=== PATIENT | female | born 1950 | race Caucasian/White ===

== ENCOUNTER 2021-02-17 14:47 | Inpatient (IN) | payer MEDICARE, MEDICAID, SELFPAY ==
[2021-02-17] VITALS (23 sets, daily range): BP systolic 50–156; BP diastolic 30–135; PULSE 85–140; RESP 15–31; TEMP 36.3; O2SAT 95–100; BMI 27.6; BMI 26.6
--- NOTE | 2021-02-17 03:22 | XRR_ITS ---
PROCEDURE INFORMATION: Exam: XR Chest Exam date and time: 02/17/2021 3:22 AM Age: 70 years old Clinical indication: Device placement; Other: Not specified; Additional info: Line placement TECHNIQUE: Imaging protocol: XR of the chest. Views: 1 view. Total images: 1 COMPARISON: CT chest abd pel w con* 02/17/2021 6:40 PM FINDINGS: Tubes, catheters and devices: A right internal jugular central venous catheter is present, with its tip overlying the region of the caval atrial junction. Lungs: Mild hazy opacity seen in the left mid lung and lung base. Pleural spaces: No pneumothorax. Heart/Mediastinum: Unremarkable. No cardiomegaly. Bones/joints: Chronic medial right shoulder dislocation. Osseous structures are unchanged from the prior exam. Other findings: X-ray is slightly rotated. XR/XR chest 1V portable [id number] IMPRESSION: 1. A right internal jugular central venous catheter is present, with its tip overlying the region of the caval atrial junction. 2. No pneumothorax. 3. Mild hazy opacity seen in the left mid lung and lung base. Radiation Dose CTDIVOL = (mGy): DLP = (mGy-cm)
--- NOTE | 2021-02-17 14:55 | CT_ITS ---
WS: [id number] CT head wo con* [id number] REASON FOR EXAM: Left-sided facial weakness right arm and leg weakness IV CONTRAST ADMINISTERED: None. TOTAL EXAM DLP: 846.[address] scans at [facility] use at least one of these dose optimization techniques: automat ed exposure control; mA and/or kV adjustment per patient size (includes targeted exams where dose is matched to clinical indication); or iterative reconstruction. FINDINGS: No midline shift or other significant mass effect. No findings of intracranial hemorrhage and no extra-axial fluid collection noted. No acute focal brain parenchymal abnormality is identified. There is symmetric global atrophy with enlargement of the ventricles and CSF spaces. No abnormality at the base of the skull is identified. CT/CT head wo con* [id number] IMPRESSION: No acute intracranial abnormality.
--- NOTE | 2021-02-17 14:56 | XR_ITS ---
WS: [id number] XR chest 1V portable [id number] REASON FOR EXAM: dyspnea/cough FINDINGS: The heart and mediastinum are within normal limits. Calcified granulomatous changes in both hemithoraces. No active pulmonary parenchymal or pleural disease noted. Chronic anterior dislocation of the right shoulder. Mild to moderate degenerative changes in the mid and lower thoracic spine. XR/XR chest 1V portable [id number] IMPRESSION: No acute chest abnormality.
--- NOTE | 2021-02-17 14:56 | ECG_ITS ---
[facility] Test Date: 2021-02-17 Pat Name: Dilma Ojeda Department: Room: Gender: Female Inspector Subassembly: : 1950 Requested By: Damian Mao Order Number: [id number] Pooja MD: Harpreet Wilson M.D. Measurements Intervals [place] Rate: 115 P: 59 WA: 162 QRS: -15 QRSD: 79 T: 81 QT: 316 QTc: 438 Interpretive Statements SINUS TACHYCARDIA WITH FREQUENT SUPRAVENTRICULAR PREMATURE COMPLEXES LOW QRS VOLTAGE IN PRECORDIAL LEADS [QRS DEFLECTION < 1.0 mV IN CHEST LEADS] POSSIBLE RIGHT VENTRICULAR CONDUCTION DELAY [RSR (QR) IN V1/V2] No previous ECG available for comparison Electronically Signed On 02-18-2021 21:32:02 CDT by Harpreet Wilson M.D. [id number]
--- NOTE | 2021-02-17 14:58 | ED_ITS ---
Documented by User: Damian Franklin DO 02/22/21 13:53 HPI - Altered Mental Status General: Chief Complaint: Weakness Stated Complaint: LOW BP Time Seen by Provider: 02/17/21 14:55 History of Present Illness: HPI narrative: 68-year-old female brought in by EMS. On arrival she is hypotensive and lethargic although she will follow simple commands she has a left-sided facial droop and seems to have weakness on the right arm and leg that is more significant than on the left. No other history is known at this point EMS relates they did give some fluids but she seems fluid overloaded with edema so they did not give her significant bolus. We are contacting jail to get more definitive report. MD complaint: altered mental status, confusion and decreased responsiveness Onset (ago): unknown Treatments prior to arrival: IV fluid and oxygen Review of Systems Const: Denies: fever(s), chills, body aches, change in appetite, fatigue or malaise Card: Denies: chest pain, edema, dyspnea on exertion or orthopnea Resp: Denies: dyspnea, productive cough or non-productive cough GI: Denies: abdominal pain, nausea or vomiting : Denies: flank pain, difficulty voiding, dysuria, urinary frequency or urinary urgency Skin/Breast: Denies: rash or pruritus PFSH ED PFSH: Medical History Acute gastroenteritis Asthma HTN (hypertension) Hyperlipidemia Type 2 diabetes mellitus Surgical History S/P hip replacement Social History Smoking and tobacco status: former smoker Alcohol intake: never Substance/Drug Use: never Housing: Senior Living Physical Exam Const: ORIENTATION/CONSCIOUSNESS: Yes awake HENMT: COMMON NORMALS: normocephalic, atraumatic and hearing grossly normal bilaterally HEAD & SCALP: normocephalic and atraumatic Resp: COMMON NORMALS: normal respiratory effort, No retractions and No use of accessory muscles AUSCULTATION: diminished lung sounds Cardio: COMMON NORMALS: regular rate and regular rhythm RATE: regular rate RHYTHM: regular rhythm HEART SOUNDS: Murmur heart sound present systolic Location: apex Radiation: to the left axilla Intensity: IV/ Characteristics: blowing Timing: early GI: COMMON NORMALS: Soft to palpation and No hepatosplenomegaly present AUSCULTATION: Yes normoactive bowel sounds PALPATION: Yes Soft to palpation, No Tenderness to palpation present (GI), No Guarding due to palpation present (GI) and Yes No hepatosplenomegaly present Extremity: COMMON NORMALS: normal to inspection, capillary refill normal, no clubbing, cyanosis or edema, no calf tenderness and no pedal edema Skin: COMMON NORMALS: no rashes or lesions noted GENERAL SKIN EXAM: no rashes or lesions noted Course Vital Signs: Vital signs: Vital Signs Temperature 99.1 F 02/20/21 20:02 Pulse Rate 99 02/22/21 09:42 Respiratory Rate 22 H 02/22/21 09:39 Blood Pressure 124/62 02/21/21 00:45 Pulse Oximetry 96 02/22/21 09:39 MDM - Altered Mental Status MDM Narrative: Medical decision making narrative: Labs imaging and EKGs reviewed. I suspect there is a left subcapital hip fracture withimpaction. CT ordered to further evaluate. Discussed with hospitalist and with Ortho. Patient appears to be in septic shock cannot find source of infection we will start with broad-spectrum antibiotics initially. Lab Data: Labs: Lab Results 02/17/21 02/17/21 02/17/21 15:17 15:17 15:17 WBC 15.1 10^3/uL H 10 ^3/uL (4.0-10.0) RBC 3.30 10^6/uL L 10 ^6/uL (4.1-5.3) Hgb 10.3 g/dL L g/dL (11.5-15.3) Hct 32.0 % L % (37.0-47.0) MCV 97.0 fl fl (81-99) MCH 31.2 pg pg (28.0-34.0) MCHC 32.2 g/dL g/dL (30.0-36.0) RDW 16.9 % H % (12.1-15.1) Plt Count 190 10^3/cmm 10^3 /cmm (130-400) MPV 9.7 fL fL (7.4-10.4) Neut % (Auto) 81.3 % % Lymph % (Auto) 5.4 % % [place] % (Auto) 10.6 % % Eos % (Auto) 0.3 % % Baso % (Auto) 0.7 % % Neut # (Auto) 12.27 10^3/uL H 1 0^3/uL (1.8-7.7) Lymph # (Auto) 0.8 10^3/uL 10^3/ uL (0.8-4.8) [place] # (Auto) 1.6 10^3/uL H 10^ 3/uL (0.2-0.9) Eos # (Auto) 0.1 10^3/uL 10^3/ uL (0.0-0.8) Baso # (Auto) 0.1 10^3/uL 10^3/ uL (0.0-0.1) Nucleated RBC % (a uto) 0 % % Nucleated RBCs # 0.0 /100WBC /100W BC D-Dimer Sodium 130 mmol/L L mmol /L (136-145) Potassium 3.8 mmol/L mmol/L (3.5-5.1) Chloride 95 mmol/L L mmol/ L (98-107) Carbon Dioxide 21 mmol/L L mmol/ L (22-29) Anion Gap 17.8 (5-19) BUN 43 mg/dL H mg/dL (8-23) Creatinine 0.7 mg/dL mg/dL (0.5-0.9) GFR Calculation Not Reportable Glucose 213 mg/dL H mg/dL (65-115) Calculated Osmolal ity 287 mOsm/kg mOsm/ kg (285-295) Lactic Acid 3.0 mmol/L H mmol /L (0.5-2.2) Lactic Acid (Sepsi s) Calcium 8.2 mg/dL L mg/dL (8.5-10.5) Magnesium 1.9 mg/dL mg/dL (1.7-2.3) Iron TIBC % Saturation Unsat Iron Binding Total Bilirubin 0.6 mg/dL mg/dL (0.15-1.2) AST 37 U/L H U/L (0-32) ALT 25 U/L U/L (0-33) Alkaline Phosphata se 307 IU/L H IU/L (35-105) Creatine Kinase 73 U/L U/L (26-192) Troponin T Baselin e Troponin T [address] [place] Troponin T NT-Pro-B Natriuret Pep 1447 pg/mL H pg/m L (0-125) Total Protein 4.2 g/dL L g/dL (6.6-8.7) Albumin 2.0 g/dL L g/dL (3.5-5.2) Globulin 2.2 g/dL g/dL (1.3-4.6) Lipase 7 U/L L U/L (13-60) Procalcitonin TSH Urine Color Urine Appearance Urine pH Ur Specific Gravit y Urine Protein Urine Glucose (UA) Urine Ketones Urine Blood Urine Nitrate Urine Bilirubin Urine Urobilinogen Ur Leukocyte [place]aim[place] ase Urine RBC Urine WBC Ur Squamous Epith Cells Amorphous Sediment Urine Bacteria Ur Random Sodium Ur Random Potassiu m Ur Random Chloride 02/17/21 02/17/21 02/17/21 15:17 15:17 15:17 WBC RBC Hgb Hct MCV MCH MCHC RDW Plt Count MPV Neut % (Auto) Lymph % (Auto) [place] % (Auto) Eos % (Auto) Baso % (Auto) Neut # (Auto) Lymph # (Auto) [place] # (Auto) Eos # (Auto) Baso # (Auto) Nucleated RBC % (a uto) Nucleated RBCs # D-Dimer Sodium Potassium Chloride Carbon Dioxide Anion Gap BUN Creatinine GFR Calculation Glucose Calculated Osmolal ity Lactic Acid Lactic Acid (Sepsi s) Calcium Magnesium Iron 56 ug/dL ug/dL (37-145) TIBC 159 mcg/dl mcg/dl % Saturation 35.2 % % (20-50) Unsat Iron Binding 103 ug/dL L ug/dL (112-347) Total Bilirubin AST ALT Alkaline Phosphata se Creatine Kinase Troponin T Baselin e 38 ng/L H ng/L (0-10) Troponin T [address] [place] Troponin T NT-Pro-B Natriuret Pep Total Protein Albumin Globulin Lipase Procalcitonin 0.32 ng/mL ng/mL (0-0.5) TSH 4.42 uIU/mL H uIU /mL (0.27-4.20) Urine Color Yellow (Yellow) Urine Appearance Clear (CLEAR) Urine pH 5 (5-7) Ur Specific Gravit y 1.020 (1.005-1.030) Urine Protein Neg (Negative) Urine Glucose (UA) Norm (Normal) Urine Ketones Negative (Negative) Urine Blood 2+ H (Negative) Urine Nitrate Negative (Negative) Urine Bilirubin 1+ H (Negative) Urine Urobilinogen Norm mg/dL mg/dL (Negative) Ur Leukocyte Naima ase Negative (Negative) Urine RBC Rare /hpf /hpf (0-2) Urine WBC Rare /hpf /hpf (0-5) Ur Squamous Epith Cells None /hpf /hpf (0-5) Amorphous Sediment Not Reportable Urine Bacteria Trace /hpf /hpf (NONE) Ur Random Sodium Ur Random Potassiu m Ur Random Chloride 02/17/21 02/17/21 02/17/21 15:17 15:17 17:25 WBC RBC Hgb Hct MCV MCH MCHC RDW Plt Count MPV Neut % (Auto) Lymph % (Auto) [place] % (Auto) Eos % (Auto) Baso % (Auto) Neut # (Auto) Lymph # (Auto) [place] # (Auto) Eos # (Auto) Baso # (Auto) Nucleated RBC % (a uto) Nucleated RBCs # D-Dimer 1.19 ug/mIFEU H u g/mIFEU (0-0.59) Sodium Potassium Chloride Carbon Dioxide Anion Gap BUN Creatinine GFR Calculation Glucose Calculated Osmolal ity Lactic Acid Lactic Acid (Sepsi s) Calcium Magnesium Iron TIBC % Saturation Unsat Iron Binding Total Bilirubin AST ALT Alkaline Phosphata se Creatine Kinase Troponin T Baselin e Troponin T [address] [place] 37.26 ng/L H ng/L (0-10) Delta Troponin T -0.74 ABS# L ABS# (0-10) NT-Pro-B Natriuret Pep Total Protein Albumin Globulin Lipase Procalcitonin TSH Urine Color Urine Appearance Urine pH Ur Specific Gravit y Urine Protein Urine Glucose (UA) Urine Ketones Urine Blood Urine Nitrate Urine Bilirubin Urine Urobilinogen Ur Leukocyte [place] Urine RBC Urine WBC Ur Squamous Epith Cells Amorphous Sediment Urine Bacteria Ur Random Sodium 10 mmol/L mmol/L Ur Random [place] m 61 mmol/L mmol/L Ur Random Chloride 15 mmol/L mmol/L 02/17/21 17:25 WBC RBC Hgb Hct MCV MCH MCHC RDW Plt Count MPV Neut % (Auto) Lymph % (Auto) [place] % (Auto) Eos % (Auto) Baso % (Auto) Neut # (Auto) Lymph # (Auto) [place] # (Auto) Eos # (Auto) Baso # (Auto) Nucleated RBC % (a uto) Nucleated RBCs # D-Dimer Sodium Potassium Chloride Carbon Dioxide Anion Gap BUN Creatinine GFR Calculation Glucose Calculated Osmolal ity Lactic Acid Lactic Acid (Sepsi s) 6.0 mmol/L H* mmo l/L (0.5-2.2) Calcium Magnesium Iron TIBC % Saturation Unsat Iron Binding Total Bilirubin AST ALT Alkaline Phosphata se Creatine Kinase Troponin T Baselin e Troponin T [address] [place] Troponin T NT-Pro-B Natriuret Pep Total Protein Albumin Globulin Lipase Procalcitonin TSH Urine Color Urine Appearance Urine pH Ur Specific Gravit y Urine Protein Urine Glucose (UA) Urine Ketones Urine Blood Urine Nitrate Urine Bilirubin Urine Urobilinogen Ur Leukocyte [place] ase Urine RBC Urine WBC Ur Squamous Epith Cells Amorphous Sediment Urine Bacteria Ur Random Sodium Ur Random Potass[place] m Ur Random Chloride Discharge Plan Discharge Patient Disposition: Admitted As Inpatient Admit Provider: Spike Jamison Clinical Impression: Septic shock, HTN (hypertension), Afib, Subcapital fracture of left hip Condition: Stable Coding Level of Care Code ED Coding Clerks Supervisor for Chg Fwd Exam Detailed Documented by User: Ronny Ritter DO 02/18/21 04:32 HPI - Altered Mental Status General: Chief Complaint: Weakness Stated Complaint: LOW BP Time Seen by Provider: 02/17/21 14:55 PFSH ED PFSH: Medical History Acute gastroenteritis Asthma HTN (hypertension) Hyperlipidemia Type 2 diabetes mellitus Surgical History S/P hip replacement Social History Smoking and tobacco status: former smoker Alcohol intake: never Substance/Drug Use: never Housing: Senior Living Procedures Central Line Placement Right IJ: Time Out Performed: No Patient Placed on Monitor/Pulse Ox: Yes MD Prep: mask, gown and gloves Central Line Prep: Chlorhexidine scrub Local Anesthetic: lidocaine 1% Amount of anesthesia used (mL): 3 Ultrasound Used for Placement: Yes Central Line Lumen Inserted: triple Post Procedure: sutured in place, good blood return, all ports aspirated, flushed, capped and sterile dressing applied Post Procedure X-Ray: tip of catheter in good position Patient Tolerated Procedure: well and no complications Course Vital Signs: Vital signs: Vital Signs Temperature 99.1 F 02/20/21 20:02 Pulse Rate 99 02/22/21 09:42 Respiratory Rate 22 H 02/22/21 09:39 Blood Pressure 124/62 02/21/21 00:45 Pulse Oximetry 96 02/22/21 09:39 MDM - Altered Mental Status Lab Data: Labs: Lab Results 02/17/21 02/17/21 02/17/21 15:17 15:17 15:17 WBC 15.1 10^3/uL H 10 ^3/uL (4.0-10.0) RBC 3.30 10^6/uL L 10 ^6/uL (4.1-5.3) Hgb 10.3 g/dL L g/dL (11.5-15.3) Hct 32.0 % L % (37.0-47.0) MCV 97.0 fl fl (81-99) MCH 31.2 pg pg (28.0-34.0) MCHC 32.2 g/dL g/dL (30.0-36.0) RDW 16.9 % H % (12.1-15.1) Plt Count 190 10^3/cmm 10^3 /cmm (130-400) MPV 9.7 fL fL (7.4-10.4) Neut % (Auto) 81.3 % % Lymph % (Auto) 5.4 % % [place] % (Auto) 10.6 % % Eos % (Auto) 0.3 % % Baso % (Auto) 0.7 % % Neut # (Auto) 12.27 10^3/uL H 1 0^3/uL (1.8-7.7) Lymph # (Auto) 0.8 10^3/uL 10^3/ uL (0.8-4.8) [place] # (Auto) 1.6 10^3/uL H 10^ 3/uL (0.2-0.9) Eos # (Auto) 0.1 10^3/uL 10^3/ uL (0.0-0.8) Baso # (Auto) 0.1 10^3/uL 10^3/ uL (0.0-0.1) Nucleated RBC % (a uto) 0 % % Nucleated RBCs # 0.0 /100WBC /100W BC D-Dimer Sodium 130 mmol/L L mmol /L (136-145) Potassium 3.8 mmol/L mmol/L (3.5-5.1) Chloride 95 mmol/L L mmol/ L (98-107) Carbon Dioxide 21 mmol/L L mmol/ L (22-29) Anion Gap 17.8 (5-19) BUN 43 mg/dL H mg/dL (8-23) Creatinine 0.7 mg/dL mg/dL (0.5-0.9) GFR Calculation Not Reportable Glucose 213 mg/dL H mg/dL (65-115) Calculated Osmolal ity 287 mOsm/kg mOsm/ kg (285-295) Lactic Acid 3.0 mmol/L H mmol /L (0.5-2.2) Lactic Acid (Sepsi s) Calcium 8.2 mg/dL L mg/dL (8.5-10.5) Magnesium 1.9 mg/dL mg/dL (1.7-2.3) Iron TIBC % Saturation Unsat Iron Binding Total Bilirubin 0.6 mg/dL mg/dL (0.15-1.2) AST 37 U/L H U/L (0-32) ALT 25 U/L U/L (0-33) Alkaline Phosphata se 307 IU/L H IU/L (35-105) Creatine Kinase 73 U/L U/L (26-192) Troponin T Baselin e Troponin T [address] [place] Troponin T NT-Pro-B Natriuret Pep 1447 pg/mL H pg/m L (0-125) Total Protein 4.2 g/dL L g/dL (6.6-8.7) Albumin 2.0 g/dL L g/dL (3.5-5.2) Globulin 2.2 g/dL g/dL (1.3-4.6) Lipase 7 U/L L U/L (13-60) Procalcitonin TSH Urine Color Urine Appearance Urine pH Ur Specific Gravit y Urine Protein Urine Glucose (UA) Urine Ketones Urine Blood Urine Nitrate Urine Bilirubin Urine Urobilinogen Ur Leukocyte [place] a[place] Urine RBC Urine WBC Ur Squamous Epith Cells Amorphous Sediment Urine Bacteria Ur Random Sodium Ur Random [place] m Ur Random Chloride 02/17/21 02/17/21 02/17/21 15:17 15:17 15:17 WBC RBC Hgb Hct MCV MCH MCHC RDW Plt Count MPV Neut % (Auto) Lymph % (Auto) [place] % (Auto) Eos % (Auto) Baso % (Auto) Neut # (Auto) Lymph # (Auto) [place] # (Auto) Eos # (Auto) Baso # (Auto) Nucleated RBC % (a uto) Nucleated RBCs # D-Dimer Sodium Potassium Chloride Carbon Dioxide Anion Gap BUN Creatinine GFR Calculation Glucose Calculated Osmolal ity Lactic Acid Lactic Acid (Sepsi s) Calcium Magnesium Iron 56 ug/dL ug/dL (37-145) TIBC 159 mcg/dl mcg/dl % Saturation 35.2 % % (20-50) Unsat Iron Binding 103 ug/dL L ug/dL (112-347) Total Bilirubin AST ALT Alkaline Phosphata se Creatine Kinase Troponin T Baselin e 38 ng/L H ng/L (0-10) Troponin T [address] [place] Troponin T NT-Pro-B Natriuret Pep Total Protein Albumin Globulin Lipase Procalcitonin 0.32 ng/mL ng/mL (0-0.5) TSH 4.42 uIU/mL H uIU /mL (0.27-4.20) Urine Color Yellow (Yellow) Urine Appearance Clear (CLEAR) Urine pH 5 (5-7) Ur Specific Gravit y 1.020 (1.005-1.030) Urine Protein Neg (Negative) Urine Glucose (UA) Norm (Normal) Urine Ketones Negative (Negative) Urine Blood 2+ H (Negative) Urine Nitrate Negative (Negative) Urine Bilirubin 1+ H (Negative) Urine Urobilinogen Norm mg/dL mg/dL (Negative) Ur Leukocyte Naima ase Negative (Negative) Urine RBC Rare /hpf /hpf (0-2) Urine WBC Rare /hpf /hpf (0-5) Ur Squamous Epith Cells None /hpf /hpf (0-5) Amorphous Sediment Not Reportable Urine Bacteria Trace /hpf /hpf (NONE) Ur Random Sodium Ur Random Potass[place] m Ur Random Chloride 02/17/21 02/17/21 02/17/21 15:17 15:17 17:25 WBC RBC Hgb Hct MCV MCH MCHC RDW Plt Count MPV Neut % (Auto) Lymph % (Auto) [place] % (Auto) Eos % (Auto) Baso % (Auto) Neut # (Auto) Lymph # (Auto) [place] # (Auto) Eos # (Auto) Baso # (Auto) Nucleated RBC % (a uto) Nucleated RBCs # D-Dimer 1.19 ug/mIFEU H u g/mIFEU (0-0.59) Sodium Potassium Chloride Carbon Dioxide Anion Gap BUN Creatinine GFR Calculation Glucose Calculated Osmolal ity Lactic Acid Lactic Acid (Sepsi s) Calcium Magnesium Iron TIBC % Saturation Unsat Iron Binding Total Bilirubin AST ALT Alkaline Phosphata se Creatine Kinase Troponin T Baselin e Troponin T [address] [place] 37.26 ng/L H ng/L (0-10) Delta Troponin T -0.74 ABS# L ABS# (0-10) NT-Pro-B Natriuret Pep Total Protein Albumin Globulin Lipase Procalcitonin TSH Urine Color Urine Appearance Urine pH Ur Specific Gravit y Urine Protein Urine Glucose (UA) Urine Ketones Urine Blood Urine Nitrate Urine Bilirubin Urine Urobilinogen Ur Leukocyte [place]aim[place] ase Urine RBC Urine WBC Ur Squamous Epith Cells Amorphous Sediment Urine Bacteria Ur Random Sodium 10 mmol/L mmol/L Ur Random [place] m 61 mmol/L mmol/L Ur Random Chloride 15 mmol/L mmol/L 02/17/21 17:25 WBC RBC Hgb Hct MCV MCH MCHC RDW Plt Count MPV Neut % (Auto) Lymph % (Auto) [place] % (Auto) Eos % (Auto) Baso % (Auto) Neut # (Auto) Lymph # (Auto) [place] # (Auto) Eos # (Auto) Baso # (Auto) Nucleated RBC % (a uto) Nucleated RBCs # D-Dimer Sodium Potassium Chloride Carbon Dioxide Anion Gap BUN Creatinine GFR Calculation Glucose Calculated Osmolal ity Lactic Acid Lactic Acid (Sepsi s) 6.0 mmol/L H* mmo l/L (0.5-2.2) Calcium Magnesium Iron TIBC % Saturation Unsat Iron Binding Total Bilirubin AST ALT Alkaline Phosphata se Creatine Kinase Troponin T Baselin e Troponin T [address] [place] Troponin T NT-Pro-B Natriuret Pep Total Protein Albumin Globulin Lipase Procalcitonin TSH Urine Color Urine Appearance Urine pH Ur Specific Gravit y Urine Protein Urine Glucose (UA) Urine Ketones Urine Blood Urine Nitrate Urine Bilirubin Urine Urobilinogen Ur Leukocyte [place] ase Urine RBC Urine WBC Ur Squamous Epith Cells Amorphous Sediment Urine Bacteria Ur Random Sodium Ur Random Potass[place] m Ur Random Chloride Discharge Plan Discharge Patient Disposition: Admitted As Inpatient Admit Provider: Spike Jamison Clinical Impression: Septic shock, HTN (hypertension), Afib, Subcapital fracture of left hip Condition: Stable Coding Level of Care Code ED Coding Clerks Supervisor for Chg Fwd Exam Detailed
[2021-02-17 15:30] LABS: Basophils # 0.1 10^3/uL (0.0-0.1); Basophils % 0.7 %; Eosinophils # 0.1 10^3/uL (0.0-0.8); Eosinophils % 0.3 %; Hemoglobin 10.3 g/dL (11.5-15.3); Lymphocytes # 0.8 10^3/uL (0.8-4.8); Lymphocytes % 5.4 %; Mean Corpuscular HGB Conc 32.2 g/dL (30.0-36.0); Mean Corpuscular Hemoglobin 31.2 pg (28.0-34.0); Mean Platelet Volume 9.7 fL (7.4-10.4); Monocytes # 1.6 10^3/uL (0.2-0.9); Monocytes % 10.6 %; Neutrophils # 12.27 10^3/uL (1.8-7.7); Neutrophils % 81.3 %; Nucleated Red Blood Cells % 0 %; Platelet Count 190 10^3/cmm (130-400); Red Cell Distribution Width 16.9 % (12.1-15.1); White Blood Count 15.1 10^3/uL (4.0-10.0)
[2021-02-17 15:53] LABS: Troponin(5th) Baseline 38 ng/L (0-10)
[2021-02-17 16:02] LABS: Alanine Aminotransferase 25 U/L (0-33); Alkaline Phosphatase 307 IU/L (35-105); Anion Gap 17.8 (5-19); Aspartate Amino Transferase 37 U/L (0-32); Blood Urea Nitrogen 43 mg/dL (8-23); Calcium 8.2 mg/dL (8.5-10.5); Carbon Dioxide 21 mmol/L (22-29); Chloride 95 mmol/L (98-107); Creatine Phosphokinase 73 U/L (26-192); Globulin 2.2 g/dL (1.3-4.6); Glucose 213 mg/dL (65-115); Lipase 7 U/L (13-60); Magnesium 1.9 mg/dL (1.7-2.3); NT Pro B Type Natriuretic Pept 1447 pg/mL (0-125); Osmolality Calculated 287 mOsm/kg (285-295); Potassium 3.8 mmol/L (3.5-5.1); Sodium 130 mmol/L (136-145); Total Bilirubin 0.6 mg/dL (0.15-1.2); Total Protein 4.2 g/dL (6.6-8.7)
[2021-02-17 16:28] LABS: Add Urine Microscopic? YES; Bacteria Urine TRACE /hpf; Bilirubin Urine 1+ (Negative); Blood Urine 2+ (Negative); Glucose Urine UA Norm (Normal); Ketones Urine Negative (Negative); Leukocyte Esterase Urine Negative (Negative); Nitrate Urine Negative (Negative); Protein Urine Neg (Negative); RBC Urine RARE /hpf (0-2); Urine Appearance Clear (CLEAR); Urine Color Yellow (Yellow); Urobilinogen Urine Norm (Negative); WBC Urine RARE /hpf (0-5); pH Urine 5 (5-7)
--- NOTE | 2021-02-17 16:56 | ECG_ITS ---
[facility] Test Date: 2021-02-17 Pat Name: Dilma Ojeda Department: Room: Gender: Female Bi Application Developer: : 1950 Requested By: Damian Mao Order Number: [id number] Pooja MD: Melinda Diez M.D. Measurements Intervals [place] Rate: 136 P: ND: QRS: -18 QRSD: 77 T: 77 QT: 274 QTc: 414 Interpretive Statements ATRIAL FIBRILLATION WITH RAPID VENTRICULAR RESPONSE LOW QRS VOLTAGE [QRS DEFLECTION < 0.5/1.0 mV IN LIMB/CHEST LEADS] POSSIBLE RIGHT VENTRICULAR CONDUCTION DELAY [RSR (QR) IN V1/V2] INFERIOR MYOCARDIAL INFARCTION , PROBABLY OLD [40+ ms Q WAVE AND/OR ST/T ABNORMALITY IN II/aVF] No previous ECG available for comparison Electronically Signed On 02-17-2021 19:35:20 CDT by Melinda Diez M.D. [id number]
[2021-02-17 17:12] LABS: Reflex Lactate Order REFLEX LACTIC ORDERD
--- NOTE | 2021-02-17 17:18 | XRR_ITS ---
PROCEDURE INFORMATION: Exam: XR Left Hip Exam date and time: 02/17/2021 5:18 PM Age: 70 years old Clinical indication: Hip pain and pelvic pain; Left hip; Additional info: Pain, include pelvis TECHNIQUE: Imaging protocol: XR Left hip. Views: 2 or 3 views hip with pelvis when performed. Total images: 3 COMPARISON: No relevant prior studies available. FINDINGS: Bones/joints: No visible fracture, subluxation, or dislocation. Advanced primary osteoarthritis of the hips, left more involved than right. Degenerative disease and degenerative disc disease of visualized lumbosacral spine. Soft tissues: Unremarkable. XR/XR hip LT 2-3V wo/w pel* [id number] IMPRESSION: Advanced primary osteoarthritis of the hips, left more involved than right. Radiation Dose CTDIVOL = (mGy): DLP = (mGy-cm)
[2021-02-17] MEDS: sodium chloride 0.9% 500 ML 999 ML IV (17:47)
--- NOTE | 2021-02-17 17:51 | USCV_ITS ---
Dilma Ojeda Age: 70 Gender: F : 1950 Exam Date: 02/17/2021 18:53 Ordering Phys: Spike Jamiosn MD Technologist: Della Díaz [place] [facility] [place]: shock afib BP: 108 / 63 HR: 122 Rhythm: Sinus Technical Quality: Very technically difficult study MEASUREMENTS (Male / Female) Normal Values 2D ECHO LV Diastolic Diameter PLAX 3.7 cm 4.2 - 5.9 / 3.9 - 5.3 cm LV Systolic Diameter PLAX 2.4 cm IVS Diastolic Thickness 1.2 cm 0.6 - 1.0 / 0.6 - 0.9 cm IVS Systolic Thickness 1.5 cm LVPW Diastolic Thickness 1.3 cm 0.6 - 1.0 / 0.6 - 0.9 cm LVPW Systolic Thickness 1.3 cm LVOT Diameter 2.0 cm LV Ejection Fraction 2D Teich 64.7 % LV Ejection Fraction MOD 2C 63.0 % LV Ejection Fraction 2C AL 64.5 % LA Diameter 2.4 cm Aorta at Sinotubular Diameter 1.8 cm DOPPLER AV Peak Velocity 605.0 cm/s LVOT Peak Velocity 207.0 cm/s AV Area Cont Eq vti 1.3 cm squared AV Area Cont Eq pk 1.1 cm squared MV Area PHT 4.6 cm squared Mitral E to A Ratio 0.7 MV E' Velocity 108.0 cm/s TR Peak Velocity 208.0 cm/s TR Peak Gradient 17.3 mmHg Right Atrial Pressure 8.0 mmHg Pulmonary Artery Systolic Pressu 25.3 mmHg FINDINGS Left Ventricle Technically very difficult study because of tachycardia and poor ultrasonic windows. Grossly LV systolic function is normal. Right Ventricle Grossly normal Right Atrium Not well-visualized Left Atrium Grossly normal Mitral Valve Moderate to severe mitral annular calcification is noted. Mild to moderate mitral regurgitation is seen. Aortic Valve Not well-visualized. Gradient across aortic valve is not clear because of poor Doppler signals. Will need repeat echo once heart rate is controlled. Tricuspid Valve Not well-visualized. Pulmonic Valve Not well-visualized Pericardium Normal pericardium without effusion. Aorta Normal ascending aorta dimension. CONCLUSIONS This is technically very limited quality study because of poor ultrasonic windows and elevated heart rates. LV systolic function is grossly normal. Moderate to severe mitral annular calcification is seen. Mild to moderate mitral regurgitation is noted. Aortic valve is not well-visualized. Gradient across aortic valve is not clear because of poor Doppler signals. Recommend repeating echocardiogram once heart rates are better controlled. No comparison studies are available. Harpreet Wilson MD (Electronically Signed) Final Date: 18 February 2021 13:21 S
--- NOTE | 2021-02-17 17:52 | CTR_ITS ---
PROCEDURE INFORMATION: Exam: CT Chest With Contrast; Diagnostic Exam date and time: 02/17/2021 5:52 PM Age: 70 years old Clinical indication: Abnormal findings; Abnormal lab test; Elevated wbc; Abnormal diagnostic tests; Abnormal ekg; Additional info: Afib, shock, sepsis TECHNIQUE: Imaging protocol: Diagnostic computed tomography of the chest with contrast. Total images: 420 Radiation optimization: All CT scans at this facility use at least one of these dose optimization techniques: automated exposure control; mA and/or kV adjustment per patient size (includes targeted exams where dose is matched to clinical indication); or iterative reconstruction. Contrast material: OMNI 300; Contrast volume: 95 ml; Contrast route: INTRAVENOUS (IV); COMPARISON: CR XR chest 1V portable [id number] 02/17/2021 3:27 PM RADIATION DOSE METRICS: Total DLP (mGy-cm): 2107.19 FINDINGS: Lungs: Evidence of bronchiolar disease superior segment left lower lobe and to a less significant degree lingula with tree in bud infiltrates consistent with active bronchiolar disease/bronchiolitis. No visible consolidated alveolar airspace disease. Rare bilateral small pulmonary nodule. Right lower lobe nodule measures approximately 4.5 mm in maximum diameter (series 2, image 33). Subpleural left upper lobe pulmonary nodule measures under 3 mm (series 2, image 23, series 601, image 22). Inferior segment lingula pulmonary nodule measures approximately 5 mm (series 2, image 32, series 601, image 34). Pleural spaces: Bilateral small pleural effusions. Heart: Cardiac size within normal limits for age. No visible pericardial effusion. Mild coronary artery disease. Aorta: The thoracic aorta is nonaneurysmal. No visible intimal flap or dissection. Mild arteriosclerosis. Lymph nodes: Marginally prominent bilateral axillary lymph nodes the largest on the left measuring 15 mm in the short axis. Marginally prominent left supraclavicular lymph nodes and a solitary prominent anterior mediastinal node greatest short axis dimensions 15 mm. No other evidence of mediastinal or hilar lymphadenopathy. Bones/joints: Chronic appearing subcoracoid anterior dislocation of the right shoulder with medial displacement of the humeral head. No visible active or acute osseous pathology. Scoliosis. Degenerative disease with spondylosis deformans and diffuse idiopathic skeletal hyperostosis. Osteopenia/osteoporosis. Soft tissues: Mild anasarca. Other findings: Respiratory motion artifact. IMPRESSION: 1. Lymphadenopathy is detailed in text above. 2. Evidence of bronchiolar disease superior segment left lower lobe and to a less significant degree lingula with tree in bud infiltrates consistent with active bronchiolar disease/bronchiolitis. 3. Rare bilateral small pulmonary nodules as detailed in text above. For patients at low risk (minimal or absent history of smoking and of other known risk factors), no routine follow-up is indicated. For patients at high risk (history of smoking or of other known risk factors), consider optional CT Chest at 12 months. (Reference: Pedro Pablo). 4. Bilateral small pleural effusions. 5. Other nonurgent, nonemergent, chronic, and age related findings as detailed in text above. REFERENCES: Pedro Pablo Mo, et al. Guidelines for Management of Incidental Pulmonary Nodules Detected on CT Images: From the Fleischner Society 2017. Radiology. 2017;284(1):228-243. PROCEDURE INFORMATION: Exam: CT Abdomen And Pelvis With Contrast Exam date and time: 02/17/2021 5:52 PM Age: 70 years old Clinical indication: Abnormal findings; Abnormal lab test; Elevated wbc; Abnormal diagnostic tests; Abnormal ekg; Additional info: Afib, shock, sepsis TECHNIQUE: Imaging protocol: Computed tomography of the abdomen and pelvis with contrast. Radiation optimization: All CT scans at this facility use at least one of these dose optimization techniques: automated exposure control; mA and/or kV adjustment per patient size (includes targeted exams where dose is matched to clinical indication); or iterative reconstruction. Contrast material: OMNI 300; Contrast volume: 95 ml; Contrast route: INTRAVENOUS (IV); COMPARISON: CR XR chest 1V portable [id number] 02/17/2021 3:27 PM RADIATION DOSE METRICS: Total DLP (mGy-cm): 2107.19 FINDINGS: Mediastinal space: Small hiatal hernia. Liver: Diffuse fatty infiltration of the liver. No visible hepatic mass or cystic structure. Gallbladder and bile ducts: Unremarkable. No calcified stones. No ductal dilation. Pancreas: Advanced atrophy of the pancreas. No visible pancreatic ductal ectasia. Spleen: Spleen unremarkable. Adrenal glands: Adrenal glands unremarkable. Kidneys and ureters: No hydronephrosis or perinephric fluid. No visible nephrolithiasis or visible ureterolithiasis. Stomach and bowel: Fecal impaction. Nonobstructive bowel pattern. No visible adynamic or reactive ileus. Appendix: The appendix is not visualized. Intraperitoneal space: Small amount of free fluid in the cul-de-sac. No visible pneumoperitoneum or generalized intraperitoneal ascites. Vasculature: Portal vein patent. The abdominal aorta is nonaneurysmal. Moderate arterial sclerotic disease. Lymph nodes: Generalized retroperitoneal and mesenteric lymphadenopathy. Portahepatis and perigastric lymphadenopathy. Pelvic and bilateral inguinal lymphadenopathy. Concern for lymphoma or leukemia. Urinary bladder: Martines catheter within the decompressed urinary bladder. Reproductive: Unremarkable as visualized for age. Bones/joints: No visible active or acute osseous pathology. Osteopenia/osteoporosis. Facet arthrosis. Mild scoliosis. Soft tissues: Mild anasarca CT/CT chest abd pel w con* IMPRESSION: 1. Diffuse lymphadenopathy, as detailed in text above, with concern for either lymphoma or leukemia. 2. Fecal impaction. 3. Other nonurgent, nonemergent, chronic, and age related findings as detailed in text above. Radiation Dose CTDIVOL = (mGy): DLP = 2107.19~2107.19 (mGy-cm)
--- NOTE | 2021-02-17 17:55 | PM.HP ---
Providers/Chief Complaint Primary Care Provider: Isaiah Camp DO Chief Complaint: LOW BP History of Present Illness Dilma Ojeda is a 70 year old female with past medical history of hypertension, type 2 diabetes mellitus resident at [facility] for last 1 week was brought to the ER by EMS after she was found unresponsive at the residential. As per the history patient was admitted to the SNF around a week ago when she was transferred from [facility] where she had presented for fall and diarrhea. She was discharged on Cipro and Flagyl for gastroenteritis. Patient was under quarantine at the residential. Today morning she was found unresponsive with reported no pulse and palpable BP at the residential and received 150 cc of fluid after which her blood pressure apparently improved. In the ER patient was found to be in atrial fibrillation with hypotension she was started on Cardizem drip and Levophed and was given 500 cc of IV fluid bolus. On examination patient is lying comfortably in bed, awake, alert x3 though slightly sluggish in response, looking edematous with severely dehydrated oral cavity. Patient states she has hypertension diabetes mellitus and used to live in assisted living prior to being transferred to the residential a week ago. She is complaining of pain in her hip. She reports prior to going to the [facility] she has had up to 3 falls in last 1 week. States fall were mostly because she tripped over her own feet. Denies any dizziness or chest pain no seizure-like activity or palpitation prior to falls. Complaining of on and off occasional diarrhea which is watery in nature. Denies any nausea, vomiting, dysuria, palpitation, chest pain, difficulty in breathing. Blood work in the ER showed a white count 15,000, hemoglobin of 10.3 with left shift, sodium of 130, chloride of 95, BUN of 43, creatinine of 0.7, lactate of 6, AST/ALT of 37/25 with alkaline phosphatase of 397 with baseline troponin of 38, proBNP of 1447 with chest x-ray showing no acute abnormality while x-ray hip read by ER physician for possible impacted hip fracture. CT head showing no acute abnormality. Review of Systems General: Reports: 10 or more systems reviewed and unremarkable except in HPI and below Const: Denies: fever(s), chills, body aches, change in appetite, change in weight, malaise, night sweats, diaphoresis, change in sleep pattern, daytime sleepiness or snoring Eyes: Denies: change in vision, blurry vision, photophobia, eye discomfort or eye discharge ENMT: Denies: throat pain, enlarged tonsils, hoarseness, mouth pain, oral sores, dry mouth, tinnitus, nasal congestion or post nasal drip Card: Denies: chest pain, palpitations, irregular heart rhythm, edema, swelling of feet/ankles, lightheadedness, syncope, pre-syncope, dyspnea on exertion, orthopnea, leg pain with exertion or acrocyanosis Resp: Denies: dyspnea, productive cough, non-productive cough, wheezing, stridor, pain on inspiration, change in phlegm color, hemoptysis or chest congestion GI: Denies: abdominal pain, nausea, vomiting, hematemesis, coffee ground emesis, dysphagia, heartburn, diarrhea, constipation, bloating, GI cramping, change in bowel habits, pain on defecation, hematochezia or melena : Denies: flank pain, dysuria, urinary frequency, urinary urgency, urinary hesitancy, nocturia or hematuria Musc: Denies: neck pain, back pain, extremity pain, joint pain, joint swelling, joint redness, joint stiffness or limited range of motion Neuro: Denies: headache(s), numbness in extremities, weakness in extremities, sensory changes, lack of coordination, difficulty walking, frequent falls, dizziness, vertigo, confusion, Slurred speech present, difficulty communicating thoughts or seizure-like activity Psych: Denies: anxiety, depression, mood swings, panic attacks, hopelessness or irritability Endo: Denies: polyuria, polydipsia, tired all the time, cold intolerance, excessive sweating, flushing or heat intolerance Tim/Lymph: Denies: easy bruising or easy bleeding All/Imm: Denies: tongue swelling, facial swelling or acute wheezing Medications/Allergies Home Medications Medication Instructions Recorded Confirmed Last Taken Type Med Plus 1 can PO BID@02/17/21 02/17/21 02/17/21 History acetaminophen 650 mg PO Q8H PRN 02/17/21 02/17/21 Unknown History atorvastatin 20 mg PO BEDTIME@199902/17/21 02/17/21 02/16/21 History diphenoxylate-atropine [Lomotil] 1 tab PO Q6H PRN 02/17/21 02/17/21 Unknown History empagliflozin [Jardiance] 10 mg PO DAILY@0700 02/17/21 02/17/21 02/17/21 History furosemide [Lasix] 40 mg PO DAILY@0700 02/17/21 02/17/21 02/17/21 History lisinopril 10 mg PO DAILY@0700 02/17/21 02/17/21 02/17/21 History potassium chloride 40 meq PO DAILY@0700 02/17/21 02/17/21 02/17/21 History semaglutide [Rybelsus] 3 mg PO DAILY@0530 02/17/21 02/17/21 02/17/21 History Allergies Allergy/AdvReac Type Severity Reaction Status Date / Time ibuprofen Allergy Unknown Unknown Verified 02/17/21 15:51 Bees Allergy Unknown Unknown Uncoded 02/17/21 15:51 PFSH Acute PFSH: Medical History (Updated 02/17/21 @ 21:55 by Spike Jamison MD) Acute gastroenteritis Asthma HTN (hypertension) Hyperlipidemia Type 2 diabetes mellitus Surgical History (Updated 02/17/21 @ 18:04 by Spike Jamison MD) S/P hip replacement Social History (Updated 02/17/21 @ 18:04 by Spike Jamison MD) Smoking and tobacco status: former smoker Alcohol intake: never Substance/Drug Use: never Housing: [facility] Vitals/I&O/Wt Last Vital Signs Pulse 121 H 02/17/21 17:48 Resp 22 H 02/17/21 17:48 BP 83/68 02/17/21 17:48 Pulse Ox 98 02/17/21 16:24 02/17/21 02/17/21 02/17/21 06:59 14:59 22:59 Intake Total 80.645 / 80.645 Balance 80.645 / 80.645 Weight last 48 hrs Weight 73.028 kg Physical Exam Narrative: EXAM NARRATIVE: General: No acute distress, AO x3, edematous, severely dehydrated oral cavity, weeping skin HEENT: PERRLA, pupils bilaterally equal and reactive Chest: Normal vesicular breath sounds, occasional rhonchi present all over the lung velásquez, crackles present in left lower zone, equal good air entry bilaterally CVS: S1-S2 irregularly irregular, tachycardia, soft pansystolic murmur at apex ,gallops, no rubs Abdomen: Soft, nontender, no organomegaly, bowel sounds present Neuro: No focal deficits, no facial deformity, AO x3, power 3/5 in all limbs, right leg laying in bed inverted Urinary Catheter Management^: Martines: Cath Placed During This Visit: yes Urinary Catheter Date of Insertion: 02/17/21 Urinary Catheter Time of Insertion: 15:25 Data : 02/17/21 15:17 02/17/21 15:17 A&P Assessment and plan (1) Septic shock: Status: Acute (2) Afib: Status: Acute (3) HTN (hypertension): Status: Acute (4) Constipation: Status: Acute (5) Type 2 diabetes mellitus: Status: Acute Additional A&P Information Septic shock: Unknown source. Check CT with contrast chest/abdomen and pelvis. Check lactic acid, probnp, procal, MRSA, Bcx, Ucx, cortisol level, TSH, urine legionella, bacterial antigen, stool studies. Keep MAP over 65. Wean levophed accordingly Check Echo. Bolus IVF 500 ml. NS @ 50 cc/hr Keep saturation over 88%. Type 2 DM: Check A1c ISS low protocol. Afib: Paroxysmal. No past medical history. BP low. Stop Cardizem drip. Give 150 mg IV bolus amiodarone followed by drip as per protocol. Can not AC given history recurrent falls. Possible hip Fx: As per ER read. Will get CT hip. PT/OT eval. Morphine 1 mg IV Q6h PRN, [place] 5 Q6h PRN. Code Status: Discussed in detail with patient. She states she would not want any life prolonging measures or chest compressions. DNR/DNI. States in case she is not able to make her medical decisions her son Mohan Ojeda will be making the decisions. Gave a call to Mr. Preston who lives in [place]. He states he talks to her mother once or twice a year. States there is no family closer to [place]. He is agreeable to make medical decisions. Protonix for PUD ppx Heparin for DVT PPX Enema, Aggressive bowel regimen. Guarded prognosis. Admit to ICU. Attestations Medical Necessity Statement*: Admit for more than 2 midnights for management of septic shock of unknown origin, atrial fibrillation with rapid ventricular response Critical Care Time: The high probability of a clinically significant, sudden or life threatening deterioration of the patient's [cardiac, pulmonary, ID] system(s) required my full and direct attention, intervention and personal management. The critical care time is as shown. This time is in addition to time spent performing any reported procedures but includes the following: [x] Data and vital sign review and interpretation [x] Patient assessment, examination and intervention [x] Documentation [x] Medication orders and management Critical Care Time (min): 90 Coding Level of Care Code Acute Rn Diabetes for [facility] Fwd Diagnoses Septic shock A41.9; R65.21 Afib I48.91 HTN (hypertension) I10 Constipation K59.00 Type 2 diabetes mellitus E11.9
[2021-02-17 18:06] LABS: Troponin 5 2HR 37.26 ng/L (0-10); Troponin 5 2HR Delta -0.74 ABS# (0-10)
[2021-02-17 18:25] LABS: D Dimer 1.19 ug/mIFEU (0-0.59)
--- NOTE | 2021-02-17 18:36 | CTR_ITS ---
PROCEDURE INFORMATION: Exam: CT Left Lower Extremity Without Contrast, Hip Exam date and time: 02/17/2021 6:36 PM Age: 70 years old Clinical indication: Hip; Left; Patient HX: Pain ? fracture TECHNIQUE: Imaging protocol: CT of the Left lower extremity without contrast was performed. Exam focused on the hip. Total images: 311 Radiation optimization: All CT scans at this facility use at least one of these dose optimization techniques: automated exposure control; mA and/or kV adjustment per patient size (includes targeted exams where dose is matched to clinical indication); or iterative reconstruction. COMPARISON: CR (PELVIS, ) 02/17/2021 5:28 PM RADIATION DOSE METRICS: Total DLP (mGy-cm): 493.24 FINDINGS: Bones/joints: No visible evidence of active or acute osseous pathology. Advanced primary osteoarthritis of the left hip with superior joint space height loss, hypertrophic spurring and eburnation, and subchondral cyst formation. Acetabular buttressing. Osteopenia/osteoporosis. No visible joint effusion. Soft tissues: Unremarkable. No visible soft tissue contusion, hematoma, or seroma. No evidence for greater trochanteric bursitis. CT/CT hip LT wo con* [id number] IMPRESSION: 1. No visible fracture. 2. Advanced primary osteoarthritis. Radiation Dose CTDIVOL = (mGy): DLP = 493.24 (mGy-cm)
[2021-02-17] MEDS: iohexol 300 mg/mL 100 mL Btl IV (18:45)
[2021-02-17 18:48] LABS: Procalcitonin 0.32 ng/mL (0-0.5); Thyroid Stimulating Hormone 4.42 uIU/mL (0.27-4.20)
[2021-02-17 18:59] LABS: Iron 56 ug/dL (37-145); Percent Saturation 35.2 % (20-50); Total Iron Binding Capacity 159 mcg/dl; Unsaturated Iron Binding 103 ug/dL (112-347)
[2021-02-17] MEDS: heparin 5,000 unit/mL INJ 1 mL 5000 UNIT SUBCUT (19:49)
[2021-02-17] MEDS: fentaNYL 50 mcg/mL INJ 2mL IVP (20:23)
[2021-02-17] MEDS: sodium chlor 0.9% + KCl 20 mEq 20 MEQ/1,000 ML BAG 50 MEQ IV (20:27)
[2021-02-17] MEDS: vancomycin 1,000 MG in sodium chloride 0.9% 250 ML 250 MG IV (20:35)
[2021-02-17] MEDS: piperacillin-tazobactam 3.375 GM in sodium chloride 0.9% (plus) 50 ML IV (20:37)
[2021-02-17 20:48] LABS: Potassium, Radom Urine 61 mmol/L
--- NOTE | 2021-02-17 20:56 | ECG_ITS ---
[facility] Test Date: 2021-02-18 Pat Name: Dilma Ojeda Department: Room: ICU07 Gender: Female [place] Driver: : 1950 Requested By: Damian Mao Order Number: [id number] Pooja MD: Harpreet Wilson M.D. Measurements Intervals [place] Rate: 81 P: 53 [place]: 180 QRS: -29 QRSD: 95 T: 54 QT: 402 QTc: 469 Interpretive Statements SINUS RHYTHM WITH OCCASIONAL SUPRAVENTRICULAR PREMATURE COMPLEXES LOW QRS VOLTAGE IN PRECORDIAL LEADS [QRS DEFLECTION < 1.0 mV IN CHEST LEADS] PROBABLE SEPTAL MYOCARDIAL INFARCTION , OF INDETERMINATE AGE [35 ms Q WAVE IN V1/V2] Compared to ECG 02/17/2021 17:24:01 Atrial fibrillation no longer present Myocardial infarct finding still present Electronically Signed On 02-18-2021 21:40:03 CDT by Harpreet Wilson M.D. [id number]
[2021-02-17 20:57] LABS: Urine Random Chloride 15 mmol/L
[2021-02-17 20:58] LABS: Urine Random Sodium 10 mmol/L
[2021-02-17] MEDS: sennosides 8.6 mg Tablet 17.2 MG PO (21:50)
[2021-02-17] MEDS: atorvastatin 40 mg Tablet 20 MG PO (21:51)
[2021-02-17] MEDS: magnesium hydroxide 30 mL UDC PO (21:51)
[2021-02-17 22:06] LABS: Troponin 5 6HR 46.72 ng/L (0-10); Troponin 5 6HR Delta 8.72 ng/L (0-12)
[2021-02-17 22:23] LABS: Cortisol Random 51.84 ug/dL (2.47-19.5); Free T4 Free Thyroxine 1.24 ng/dL (0.82-1.77); T3 Free 1.2 PG/ML (2.0-4.4)
[2021-02-18] VITALS (46 sets, daily range): BP systolic 73–151; BP diastolic 47–78; PULSE 65–98; RESP 12–31; TEMP 36.4–36.7; O2SAT 78–100
[2021-02-18] MEDS: morphine 4 mg/mL SDV 1 mL 1 MG IVP (00:42)
[2021-02-18 01:34] LABS: Glucose Point of Care 291 mg/dL (70-110)
[2021-02-18] MEDS: insulin lispro 100 unit/1 mL SUBCUT ×5 (01:39→21:13)
[2021-02-18] MEDS: ipratropium-albuterol 3 mL Neb INHALATION ×4 (03:29→20:57)
[2021-02-18] MEDS: piperacillin-tazobactam 3.375 GM in sodium chloride 0.9% (plus) 50 ML IV ×3 (04:20→20:52)
[2021-02-18 05:21] LABS: Basophils # 0.2 10^3/uL (0.0-0.1); Basophils % 0.9 %; Eosinophils # 0.1 10^3/uL (0.0-0.8); Eosinophils % 0.4 %; Hematocrit 28.2 % (37.0-47.0); Hemoglobin 8.9 g/dL (11.5-15.3); Lymphocytes # 1.3 10^3/uL (0.8-4.8); Lymphocytes % 6.3 %; Mean Corpuscular HGB Conc 31.6 g/dL (30.0-36.0); Mean Corpuscular Hemoglobin 30.6 pg (28.0-34.0); Mean Corpuscular Volume 96.9 fl (81-99); Mean Platelet Volume 9.3 fL (7.4-10.4); Monocytes # 1.9 10^3/uL (0.2-0.9); Monocytes % 9.2 %; Neutrophils # 17.17 10^3/uL (1.8-7.7); Neutrophils % 81.7 %; Nucleated Red Blood Cells % 0 %; Platelet Count 184 10^3/cmm (130-400); Red Blood Count 2.91 10^6/uL (4.1-5.3); Red Cell Distribution Width 16.7 % (12.1-15.1)
[2021-02-18 05:53] LABS: Alanine Aminotransferase 23 U/L (0-33); Alkaline Phosphatase 261 IU/L (35-105); Anion Gap 14.3 (5-19); Aspartate Amino Transferase 34 U/L (0-32); Blood Urea Nitrogen 42 mg/dL (8-23); Calcium 7.7 mg/dL (8.5-10.5); Carbon Dioxide 20 mmol/L (22-29); Chloride 97 mmol/L (98-107); Cortisol Random 31.28 ug/dL (2.47-19.5); Globulin 1.7 g/dL (1.3-4.6); Glucose 230 mg/dL (65-115); Magnesium 1.7 mg/dL (1.7-2.3); Osmolality Calculated 284 mOsm/kg (285-295); Phosphorus 3.5 mg/dL (2.5-4.5); Potassium 3.3 mmol/L (3.5-5.1); Sodium 128 mmol/L (136-145); Total Bilirubin 0.4 mg/dL (0.15-1.2); Total Protein 3.7 g/dL (6.6-8.7)
[2021-02-18 06:00] LABS: Slide Review Slide Review Perform
[2021-02-18] MEDS: vancomycin 1,000 MG in sodium chloride 0.9% 250 ML 250 MG IV ×2 (06:26→19:58)
[2021-02-18] MEDS: heparin 5,000 unit/mL INJ 1 mL 5000 UNIT SUBCUT ×2 (06:26→17:58)
[2021-02-18 08:01] LABS: Glucose Point of Care 207 mg/dL (70-110)
[2021-02-18] MEDS: azithromycin 500 MG in sodium chloride 0.9% 250 ML 250 MG IV (08:10)
[2021-02-18] MEDS: TRAMadol 50 mg Tablet PO (08:11)
[2021-02-18] MEDS: budesonide 0.5 mg/2 mL Neb INHALATION ×2 (09:04→20:57)
[2021-02-18] MEDS: lactulose oral liq 20 gm/30 mL UDC 10 GM PO (11:25)
[2021-02-18] MEDS: magnesium hydroxide 30 mL UDC PO ×2 (11:26→20:52)
[2021-02-18] MEDS: sennosides 8.6 mg Tablet 17.2 MG PO ×2 (11:26→20:52)
[2021-02-18] MEDS: sodium chloride 0.9% 500 ML 999 ML IV (11:27)
[2021-02-18 11:37] LABS: Glucose Point of Care 230 mg/dL (70-110)
[2021-02-18 12:00] LABS: LAB Peripheral Smear Sent for Review
--- NOTE | 2021-02-18 13:44 | P.CONIM_ITS ---
Providers/Reason For Consult Consulting Physician/Specialty*: Kaya Pino MD - Orthopedics Reason for Consult*: Severe left hip pain following a fall Requesting Physician: Damian Franklin MD Attending Physician: Spike Jamison MD Primary Care Provider: Isaiah Camp DO History of Present Illness History of Present Illness Dilma Ojeda is a 70 year old female who is a full-time resident at [facility] and [facility]. The patient has a history of hypertension as well as type 2 diabetes. She was brought to the emergency room on February 17 after [facility]. Reportedly, the patient was [facility] to this [facility] approximately 1 week ago after being transferred from [place] emergency department. At that time, she presented after a fall and also was complaining of diarrhea. She was treated for gastroenteritis and was under quarantine at the penitentiary. At the time she was found at the penitentiary, she was unresponsive with no palpable pulse or blood pressure. The situation responded to approximately 150 cc of fluid. While in the emergency department, she was found to be in atrial fibrillation with hypotension and was treated appropriately. She subsequently was admitted to the intensive care unit. At the time she was evaluated, she was in the ICU. She complained of severe pain in her left hip which was present at least over the prior week. Per my history, the patient states that she was able to ambulate with a cane prior to her 3 falls in the week prior to admission. Prior to be admitted to the skilled facility, the patient was in assisted living. Review of Systems General: Reports: 10 or more systems reviewed and unremarkable except in HPI and below Const: Denies: fever(s), chills, body aches, change in appetite, change in weight, fatigue, malaise, night sweats, diaphoresis, change in sleep pattern, daytime sleepiness or snoring Eyes: Denies: change in vision, blurry vision, photophobia, eye discomfort or eye discharge ENMT: Denies: throat pain, enlarged tonsils, hoarseness, mouth pain, oral sores, dry mouth, tinnitus, nasal congestion or post nasal drip Card: Denies: chest pain, palpitations, irregular heart rhythm, edema, swelling of feet/ankles, lightheadedness, syncope, pre-syncope, dyspnea on e xertion, orthopnea, leg pain with exertion or acrocyanosis Resp: Denies: dyspnea, productive cough, non-productive cough, wheezing, stridor, pain on inspiration, change in phlegm color, hemoptysis or chest congestion GI: Denies: abdominal pain, nausea, vomiting, hematemesis, coffee ground emesis, dysphagia, heartburn, diarrhea, constipation, bloating, GI cramping, change in bowel habits, pain on defecation, hematochezia or melena : Denies: flank pain, difficulty voiding, dysuria, urinary frequency, urinary urgency, urinary hesitancy, nocturia or hematuria Musc: Denies: neck pain, back pain, extremity pain, joint pain, joint swelling, joint redness, joint stiffness or limited range of motion Skin/Breast: Denies: rash or pruritus Neuro: Denies: headache(s), numbness in extremities, weakness in extremities, sensory changes, lack of coordination, difficulty walking, frequent falls, dizziness, vertigo, confusion, Slurred speech present, difficulty communicating thoughts or seizure-like activity Psych: Denies: anxiety, depression, mood swings, panic attacks, hopelessness or irritability Endo: Denies: polyuria, polydipsia, tired all the time, cold intolerance, excessive sweating, flushing or heat intolerance Tim/Lymph: Denies: easy bruising or easy bleeding All/Imm: Denies: tongue swelling, facial swelling or acute wheezing Meds/Allergies Home Medications and Allergies Home Medications Medication Instructions Recorded Confirmed Last Taken Type Med Plus 1 can PO BID@08,16 02/17/21 02/17/21 02/17/21 History acetaminophen 650 mg PO Q8H PRN 02/17/21 02/17/21 Unknown History atorvastatin 20 mg PO BEDTIME@199902/17/21 02/17/21 02/16/21 History diphenoxylate-atropine [Lomotil] 1 tab PO Q6H PRN 02/17/21 02/17/21 Unknown History empagliflozin [Jardiance] 10 mg PO DAILY@0700 02/17/21 02/17/21 02/17/21 History furosemide [Lasix] 40 mg PO DAILY@0700 02/17/21 02/17/21 02/17/21 History lisinopril 10 mg PO DAILY@0700 02/17/21 02/17/21 02/17/21 History potassium chloride 40 meq PO DAILY@0700 02/17/21 02/17/21 02/17/21 History semaglutide [Rybelsus] 3 mg PO DAILY@0530 02/17/21 02/17/21 02/17/21 History Allergies Allergy/AdvReac Type Severity Reaction Status Date / Time ibuprofen Allergy Unknown Unknown Verified 02/17/21 15:51 Bees Allergy Unknown Unknown Uncoded 02/17/21 15:51 Current Medications Current Medications Generic Name Dose Route Start Last Admin Trade Name Freq PRN Reason Stop Dose Admin Albuterol/Ipratropium 3 ml 02/17/21 21:00 02/18/21 09:04 Ipratropium-Albuterol 3 Ml Neb INHALATION 3 ml Q6H.RESPIRATORY SD Administration Atorvastatin Calcium 20 mg 02/17/21 20:00 02/17/21 21:51 Atorvastatin 40 Mg Tablet PO 20 mg BEDTIME@2000 SD Administration Budesonide 0.5 mg 02/17/21 18:00 02/18/21 09:04 Budesonide 0.5 Mg/2 Ml Neb INHALATION 0.5 mg BID SD Administration Heparin Sodium (Porcine) 5,000 unit 02/17/21 19:00 02/18/21 06:26 Heparin 5,000 Unit/Ml Inj 1 Ml SUBCUT 5,000 unit Q12H SD Administration Norepinephrine Bitartrate 4 mg 254 mls @ 0 mls/hr 02/17/21 15:00 02/18/21 08:06 / Dextrose IV 14 mcg/min .Q0M SD 53.34 mls/hr Administration Protocol Per Protocol Piperacillin Sod/Tazobactam 50 mls @ 12.5 mls/hr 02/17/21 20:00 02/18/21 11:28 Sod 3.375 gm/ Sodium Chloride IV 12.5 mls/hr Q8H SD Administration Protocol Azithromycin 500 mg/ Sodium 250 mls @ 250 mls/hr 02/18/21 09:00 02/18/21 09:51 Chloride IV Infused DAILY SD Infusion Protocol Vancomycin HCl 1,000 mg/ 250 mls @ 250 mls/hr 02/17/21 19:15 02/18/21 09:51 Sodium Chloride IV Infused Q12H SD Infusion Protocol Amiodarone HCl 900 mg/ 518 mls @ 0 mls/hr 02/17/21 18:00 02/18/21 11:20 Dextrose/ IV Miscellaneous IV 0.5 mg/min Supplies .Q0M SD 17.27 mls/hr Administration Protocol Per Protocol Potassium Chloride/Sodium Chloride 20 meq in 1,000 mls @ 100 mls/hr 02/17/21 18:31 02/17/21 20:27 Sodium Chlor 0.9% + Kcl 20 Meq IV 50 mls/hr .Q10H SD Administration Insulin Human Lispro 0 unit 02/18/21 00:45 02/18/21 12:02 Insulin Lispro 100 Unit/1 Ml SUBCUT 4 unit WM&BEDTIME SD Administration Protocol Lactulose 10 gm 02/18/21 09:00 02/18/21 11:25 Lactulose Oral Liq 20 Gm/30 Ml Udc PO 10 gm DAILY SD Administration Magnesium Hydroxide 30 ml 02/18/21 10:50 02/18/21 11:26 Magnesium Hydroxide 30 Ml Udc PO 30 ml BEDTIME SD Administration Morphine Sulfate 1 mg 02/17/21 18:31 02/18/21 00:42 Morphine 4 Mg/Ml Sdv 1 Ml IVP 1 mg Q4H PRN Administration SEVERE PAIN Pantoprazole Sodium 40 mg 02/17/21 19:00 02/18/21 01:34 Pantoprazole 40 Mg Sdv IVP Not Given Q24H SD Senna 17.2 mg 02/18/21 10:50 02/18/21 11:26 Sennosides 8.6 Mg Tablet PO 17.2 mg BEDTIME SD Administration Tramadol HCl 50 mg 02/17/21 20:42 02/18/21 08:11 Tramadol 50 Mg Tablet PO 50 mg Q4H PRN Administration MODERATE PAIN PFSH Acute PFSH: Medical History Acute gastroenteritis Asthma HTN (hypertension) Hyperlipidemia Type 2 diabetes mellitus Surgical History S/P hip replacement Social History Smoking and tobacco status: former smoker Alcohol intake: never Substance/Drug Use: never Housing: Skilled Nursing Vitals/I&O/Wt Last Vital Signs Temp 97.8 F 02/18/21 07:45 Pulse 68 02/18/21 13:00 Resp 22 H 02/18/21 13:00 BP 131/77 02/18/21 13:00 Pulse Ox 98 02/18/21 13:00 02/17/21 02/18/21 02/18/21 22:59 06:59 14:59 Intake Total 1257.000 / 1257.000 541.115 / 1798.115 941.525 / 941.525 Output Total 1750 / 1750 Balance 1257.000 / 1257.000 -1208.885 / 48.115 941.525 / 941.525 Weight last 48 hrs Weight 168 lb Weight 155 lb Weight 161 lb Physical Exam Narrative: EXAM NARRATIVE: The patient is seen in intensive care unit. Although she had been previously noted to have some mental status alteration, she seems to answer my questions appropriately at the time of my visit. Const: COMMON NORMALS: no acute distress, average body habitus, patient oriented x3 and alert GENERAL APPEARANCE: cooperative and comfortable ORIENTATION/CONSCIOUSNESS: Yes awake HENMT: COMMON NORMALS: normocephalic and atraumatic HEAD & SCALP: normocephalic and atraumatic Eye: GENERAL EYE: appearance normal, both eyes and all related structures Chest: COMMONS NORMALS: normal inspection of the chest Resp: COMMON NORMALS: normal respiratory effort EFFORT & INSPECTION: Yes able to speak in complete sentences and Yes symmetric chest movement Extremity: LEFT LOWER EXTREMITY: Yes hip joint (Some crepitation to range of motion of the hip. Consistent with DJD) Left hip: Yes inspection (No ecchymosis or tenderness.), Yes palpation (No tenderness), Yes ROM (Flex to ~70 degrees is nontender, but IR is exquisitely tender) and Yes neurovascular exam (Motor function intact distally.) Neuro: COMMON NORMALS: patient oriented x3 SENSORIUM/ORIENTATION: Yes alert Psych: COMMON NORMALS: mental status grossly normal APPEARANCE: Yes grossly normal ATTITUDE: Yes calm and Yes engaged ATTENTION/CONCENTRATION: Yes attention grossly intact Skin: COMMON NORMALS: no rashes or lesions noted GENERAL SKIN EXAM: no r ashes or lesions noted Urinary Catheter Management^: Martines: Cath Placed During This Visit: yes Reason for Continuing Indwelling Catheter: Accurate Measurement of Urinary Output in Critically Ill Patients Urinary Catheter Date of Insertion: 02/17/21 Urinary Catheter Time of Insertion: 15:25 Data Micro: Micro: Microbiology 02/17/21 18:55 MRSA Culture - Fin al Nose 02/17/21 15:17 Bacterial Antigens - Final Urine Kidney 02/17/21 15:17 Legionella Urinary Antigen - Final Unknown Source 02/17/21 21:32 Blood Culture - Pr eliminary Blood SPECIMEN [place] 02/17/21 15:17 Blood Culture - Pr eliminary Blood SPECIMEN [facility] Imaging^: Xray Ortho: I personally reviewed and interpreted this imaging study as follows: My impression: Patient was admitted with complaints of left hip pain. Focuses on the left hip and 3 views are evaluated. There is evidence of circumferential subcapital osteophytes and possible impacted subcapital hip fracture. It is difficult to discern between the 2 secondary to the degree of osteoarthritis. Additionally, there is some collapse of the femoral head proximally. There is a large osteophyte along the acetabulum. There is complete obliteration of joint space. Findings are consistent with severe degenerative osteoarthritis of the left hip with femoral head collapse and abnormality. Other CT: I personally reviewed and interpreted this imaging study as follows: My impression: CT scan demonstrates no evidence of acute fracture. Once again, severe degenerative osteoarthritis is appreciated on the scan as well. A&P Assessment and plan (1) Primary osteoarthritis of left hip: This 70-year-old woman is seen and evaluated after presentation to the emergency department following an [facility] event [facility] at which time she was unresponsive. She responded to resuscitative therapies, and now was in the intensive care unit awake alert and responsive. The patient appears to answer questions appropriately. From an orthopedic standpoint, the patient states that she ambulated primarily with a cane until a week or so ago. She has had chronic pain in this left hip, but most recently, it has caused her to be unable to ambulate. There was concern regarding the possibility of an impacted subcapital hip fracture. And I was consulted for definitive care. Both the CT and x-rays are reviewed. Findings are as above, but there is significant degenerative osteoarthritic change within the hip. I am concerned given her multiple falls, there may be a nondisplaced fracture which is not visualized on either of these studies. This would certainly be most consistent with her symptoms. For this reason, we will order an MRI. Currently, given that she is on resuscitative therapies in the intensive care unit, we will delay this MRI until February 20. This is explained to the patient and she is in agreement with the plan. Status: Acute Coding Level of Care Code Acute Extermination Supervisor for Yola Sierra Diagnoses Primary osteoarthritis of left hip M16.12
[2021-02-18] MEDS: norepinephrine 8 MG in dextrose 5 % 500 ML 53.34 MG IV (14:01)
--- NOTE | 2021-02-18 15:14 | USCV_ITS ---
Dilma Ojeda Age: 70 Gender: F : 1950 Exam Date: 02/18/2021 16:30 Ordering Phys: Spike Jamison MD Technologist: Brook Santamaria Exam Location: [facility] [place] Indication: Ejection fraction, right sided pressures BP: 131 / 77 HR: 80 Rhythm: Sinus Technical Quality: Fair MEASUREMENTS (Male / Female) Normal Values 2D ECHO LV Diastolic Diameter PLAX 3.1 cm 4.2 - 5.9 / 3.9 - 5.3 cm LV Systolic Diameter PLAX 1.7 cm IVS Diastolic Thickness 1.1 cm 0.6 - 1.0 / 0.6 - 0.9 cm IVS Systolic Thickness 1.2 cm LVPW Diastolic Thickness 0.8 cm 0.6 - 1.0 / 0.6 - 0.9 cm LVPW Systolic Thickness 0.8 cm LV Ejection Fraction 2D Teich 76.2 % LV Ejection Fraction MOD 2C 53.0 % LV Ejection Fraction 2C AL 55.6 % M-MODE LV Diastolic Diameter MM 3.6 cm 4.2 - 5.9 / 3.9 - 5.3 cm LV Systolic Diameter MM 2.4 cm LV Ejection Fraction MM Teich 62.2 % IVS Diastolic Thickness MM 1.0 cm 0.6 - 1.0 / 0.6 - 0.9 cm IVS Systolic Thickness MM 1.2 cm LVPW Diastolic Thickness MM 1.3 cm 0.6 - 1.0 / 0.6 - 0.9 cm LVPW Systolic Thickness MM 1.4 cm DOPPLER TR Peak Velocity 258.0 cm/s TR Peak Gradient 26.6 mmHg Right Atrial Pressure 3.0 mmHg Pulmonary Artery Systolic Pressu 29.6 mmHg FINDINGS Left Ventricle Limited echocardiogram obtained to assess LV systolic function. LV systolic function is normal with EF of 60 to 65%. No regional wall motion abnormalities are seen. Right Ventricle Right ventricle is grossly normal. Insufficient TR jet to calculate RVSP. Right Atrium Left Atrium Mitral Valve Aortic Valve Tricuspid Valve Pulmonic Valve Pericardium Aorta CONCLUSIONS Limited echocardiogram obtained to assess LV systolic function. LV systolic function is normal with EF of 60 to 65%. No regional wall motion abnormalities are seen. Harpreet Wilson MD (Electronically Signed) Final Date: 19 February 2021 22:41 S
--- NOTE | 2021-02-18 15:16 | PM.PN ---
Subjective Subjective: Interval history: No acute events overnight patient has remained afebrile. Heart rate better converted back to normal sinus rhythm. Currently on 0.5 of amiodarone. Is on 14 mics of Levophed. During the day is being weaned down. Cheetah exam was done which showed she was fluid responsive. Bedside echocardiogram showed EF of 50 to 55% with trace TR. continues to complain of pain in left side of the hip while moving her legs. Vitals/I&O/Wt Last Vital Signs Temp 97.8 F 02/18/21 07:45 Pulse 70 02/18/21 14:43 Resp 16 02/18/21 14:41 BP 131/77 02/18/21 13:00 Pulse Ox 92 02/18/21 14:41 02/18/21 02/18/21 02/18/21 06:59 14:59 22:59 Intake Total 541.115 / 6859.251 2534.525 / 1795.525 Output Total 1750 / 1750 Balance -1208.885 / 48.115 1795.525 / 1795.525 Weight last 48 hrs Weight 76.204 kg Weight 70.307 kg Weight 73.028 kg Physical Exam Narrative: EXAM NARRATIVE: General: No acute distress, AO x3, edematous, dehydrated oral cavity, weeping skin HEENT: PERRLA, pupils bilaterally equal and reactive Chest: Normal vesicular breath sounds, occasional rhonchi present all over the lung velásquez, crackles present in left lower zone, equal good air entry bilaterally CVS: S1-S2 irregularly irregular, tachycardia, soft pansystolic murmur at apex ,gallops, no rubs Abdomen: Soft, nontender, no organomegaly, bowel sounds present Neuro: No focal deficits, no facial deformity, AO x3, power 3/5 in all limbs, Urinary Catheter Management^: Martines: Cath Placed During This Visit: yes Reason for Continuing Indwelling Catheter: Accurate Measurement of Urinary Output in Critically Ill Patients Urinary Catheter Date of Insertion: 02/17/21 Urinary Catheter Time of Insertion: 15:25 Data : 02/18/21 04:57 02/18/21 04:57 Micro: Microbiology 02/17/21 18:55 MRSA Culture - Final Nose 02/17/21 15:17 Bacterial Antigens - Final Urine Kidney 02/17/21 15:17 Legionella Urinary Antigen - Final Unknown Source 02/17/21 21:32 Blood Culture - Preliminary Blood SPECIMEN COLLECTED 02/17/21 15:17 Blood Culture - Preliminary Blood SPECIMEN COLLECTED A&P Assessment and plan (1) Septic shock: Status: Acute (2) Afib: Status: Acute (3) Fecal impaction of colon: Status: Acute (4) Hyponatremia: Status: Acute (5) Hypokalemia: Status: Acute (6) HTN (hypertension): Status: Acute (7) Type 2 diabetes mellitus: Status: Acute (8) Primary osteoarthritis of left hip: Status: Acute Additional A&P Information Septic shock: Unknown source. CT chest, abdomen pelvis negative for any active signs of acute infection. CT abdomen pelvis consistent with diffuse lymphadenopathy and fecal impaction. CT chest with tree-in-bud. Pro-Geraldo negative, MRSA positive, UA negative for signs of infection, cortisol level, TSH within normal limits. Urine Legionella bacterial antigen negative. Bolus 500 normal saline followed by increasing normal saline to 100 cc/h. Wean Levophed keeping mean over 65. Keep saturation over 88%. COVID-19 PCR sent out. Isolation precaution. Afib: Reverted to normal sinus rhythm. Paroxysmal A. fib. Continue with amiodarone to finish as per amiodarone protocols. Transition over to amiodarone 200 mg twice daily. Can not AC given history recurrent falls. Hyponatremia:Serum osmolarity 284. Urine sodium less than 10. Most likely secondary to hypoproteinemia versus third spacing and severe constipation. Continue with IV fluids as above. Repeat CMP in evening. Hypokalemia: Continue with fluid with potassium. 40 mEq oral potassium. Osteoarthritis of left hip: Unlikely hip fracture: Appreciate orthopedics recommendation. MRI hip. PT/OT eval. Morphine 1 mg IV Q6h PRN, [place] 5 Q6h PRN. Constipation/fecal impaction: Aggressive bowel regimen. Milk of molasses enema. Code Status: Discussed in detail with patient. She states she would not want any life prolonging measures or chest compressions. DNR/DNI. States in case she is not able to make her medical decisions her son oMhan Ojeda will be making the decisions. Gave a call to Mr. Preston who lives in [place]. He states he talks to her mother once or twice a year. States there is no family closer to [place]. He is agreeable to make medical decisions. Protonix for PUD ppx Heparin for DVT PPX Discharge planning: SNF once medically stable and cleared from orthopedics standpoint. Attestations Medical Necessity Statement*: Requires further hospitalization for management of septic shock, fecal impaction, hyponatremia, atrial fibrillation on amiodarone drip Time Spent in Patient Care: Greater than 35 minutes (>than 50% of time spent in counselling and/or direct pt care on unit). Coding Level of Care Code Acute Switchboard Operator Assistant for g Fwd Diagnoses Septic shock A41.9; R65.21 Afib I48.91 Fecal impaction of colon K56.41 Hyponatremia E87.1 Hypokalemia E87.6 HTN (hypertension) I10 Type 2 diabetes mellitus E11.9 Primary osteoarthritis of left hip M16.12
[2021-02-18] MEDS: sodium chlor 0.9% + KCl 20 mEq 20 MEQ/1,000 ML BAG 50 MEQ IV ×2 (16:03→18:29)
[2021-02-18] MEDS: potassium chloride ER 20 mEq Tablet 40 MEQ PO (16:19)
--- NOTE | 2021-02-18 16:41 | PC.NURSE ---
BM Pt had milk and molasses enema which is resulting in large results of soft brown stool.
[2021-02-18 16:54] LABS: Glucose Point of Care 184 mg/dL (70-110)
[2021-02-18] MEDS: amiodarone 200 mg Tablet PO (17:58)
[2021-02-18] MEDS: pantoprazole 40 mg SDV IVP (17:59)
--- NOTE | 2021-02-18 18:43 | PC.NURSE ---
Shift Note Frequent safety and comfort rounds continue. Orders and/or nursing care completed as indicated. Patient monitored for response to intervention and treatment(s). Education provided includes on new po cardizem. Patient and/or claim representative verbalized understanding. Pt had 2 large bowel movements after enema. Levophed is being titrated down it is now at 8. Will continue to monitor.
[2021-02-18 19:08] LABS: Alanine Aminotransferase 21 U/L (0-33); Albumin Level 2.2 g/dL (3.5-5.2); Alkaline Phosphatase 232 IU/L (35-105); Anion Gap 13.6 (5-19); Aspartate Amino Transferase 33 U/L (0-32); Blood Urea Nitrogen 31 mg/dL (8-23); Calcium 7.7 mg/dL (8.5-10.5); Carbon Dioxide 20 mmol/L (22-29); Chloride 98 mmol/L (98-107); Globulin 1.6 g/dL (1.3-4.6); Glucose 194 mg/dL (65-115); Osmolality Calculated 278 mOsm/kg (285-295); Potassium 3.6 mmol/L (3.5-5.1); Sodium 128 mmol/L (136-145); Total Bilirubin 0.5 mg/dL (0.15-1.2); Total Protein 3.8 g/dL (6.6-8.7)
[2021-02-18 19:16] LABS: Vancomycin Trough 12.2 ug/mL (10-15)
[2021-02-18] MEDS: atorvastatin 40 mg Tablet 20 MG PO (20:52)
[2021-02-18 21:09] LABS: Glucose Point of Care 185 mg/dL (70-110)
[2021-02-19] VITALS (38 sets, daily range): BP systolic 93–142; BP diastolic 51–122; PULSE 75–93; RESP 16–27; TEMP 36.7; O2SAT 80–100
--- NOTE | 2021-02-19 01:29 | PC.NURSE ---
Passive Leg Raise completed due to increase in levophed. Patient was not reactive, delta change 0.5, CI: 2.5, TPRI 2723. No fluids ordered due to patient response at this time.
[2021-02-19] MEDS: ipratropium-albuterol 3 mL Neb INHALATION ×4 (03:14→20:15)
[2021-02-19] MEDS: piperacillin-tazobactam 3.375 GM in sodium chloride 0.9% (plus) 50 ML IV ×3 (03:50→20:20)
[2021-02-19] MEDS: sodium chlor 0.9% + KCl 20 mEq 20 MEQ/1,000 ML BAG 100 MEQ IV ×2 (03:55→13:42)
--- NOTE | 2021-02-19 05:50 | PC.NURSE ---
Shift Summary: Patient repositioned several times for hip comfort. Had large liquid bowel movement. Levophed increased, patient not responsive when assessed with PLR
[2021-02-19 05:56] LABS: Alanine Aminotransferase 22 U/L (0-33); Albumin Level 2.1 g/dL (3.5-5.2); Alkaline Phosphatase 272 IU/L (35-105); Anion Gap 13.1 (5-19); Aspartate Amino Transferase 38 U/L (0-32); Blood Urea Nitrogen 24 mg/dL (8-23); Calcium 7.6 mg/dL (8.5-10.5); Carbon Dioxide 19 mmol/L (22-29); Chloride 103 mmol/L (98-107); Globulin 1.8 g/dL (1.3-4.6); Glucose 127 mg/dL (65-115); Osmolality Calculated 278 mOsm/kg (285-295); Potassium 4.1 mmol/L (3.5-5.1); Sodium 131 mmol/L (136-145); Total Bilirubin 0.5 mg/dL (0.15-1.2); Total Protein 3.9 g/dL (6.6-8.7)
[2021-02-19 06:00] LABS: Cholesterol 88 mg/dL (0-200); HDL Cholesterol 10 mg/dL (60-100); LDL Cholesterol Calculated 19 mg/dL (50-129); Triglycerides 295 mg/dL (0-150); VLDL Cholestrol Calculation 59 mg/dL (0-30)
[2021-02-19 06:01] LABS: Estmated Average Glucose 108; Hemoglobin A1C 5.4 % (4.0-6.0)
[2021-02-19 06:07] LABS: Procalcitonin 0.78 ng/mL (0-0.5)
[2021-02-19] MEDS: norepinephrine 8 MG in dextrose 5 % 500 ML 38.1 MG IV (07:09)
[2021-02-19 07:31] LABS: Glucose Point of Care 135 mg/dL (70-110)
[2021-02-19] MEDS: heparin 5,000 unit/mL INJ 1 mL 5000 UNIT SUBCUT ×2 (08:03→18:04)
[2021-02-19] MEDS: lactulose oral liq 20 gm/30 mL UDC 10 GM PO (08:04)
[2021-02-19] MEDS: vancomycin 1,000 MG in sodium chloride 0.9% 250 ML 250 MG IV ×2 (08:04→20:15)
[2021-02-19] MEDS: amiodarone 200 mg Tablet PO ×2 (08:04→18:04)
[2021-02-19 08:12] LABS: Basophils # 0.1 10^3/uL (0.0-0.1); Basophils % 0.6 %; Eosinophils # 0.5 10^3/uL (0.0-0.8); Hematocrit 27.4 % (37.0-47.0); Hemoglobin 8.5 g/dL (11.5-15.3); Lymphocytes # 0.9 10^3/uL (0.8-4.8); Lymphocytes % 5.8 %; Mean Corpuscular Hemoglobin 29.9 pg (28.0-34.0); Mean Corpuscular Volume 96.5 fl (81-99); Mean Platelet Volume 9.5 fL (7.4-10.4); Monocytes # 1.6 10^3/uL (0.2-0.9); Neutrophils # 12.48 10^3/uL (1.8-7.7); Neutrophils % 79.1 %; Nucleated Red Blood Cells % 0 %; Platelet Count 144 10^3/cmm (130-400); Red Blood Count 2.84 10^6/uL (4.1-5.3); Red Cell Distribution Width 16.8 % (12.1-15.1); White Blood Count 15.8 10^3/uL (4.0-10.0)
[2021-02-19] MEDS: budesonide 0.5 mg/2 mL Neb INHALATION ×2 (09:18→20:16)
--- NOTE | 2021-02-19 09:48 | XRR_ITS ---
PROCEDURE INFORMATION: Exam: XR Abdomen Exam date and time: 02/19/2021 9:48 AM Age: 70 years old Clinical indication: Abdominal pain; Additional info: Fecal impaction TECHNIQUE: Imaging protocol: XR of the abdomen. Views: Frontal supine view of the abdomen. 1 View. COMPARISON: CT chest abd pel w con* 02/17/2021 6:40 PM FINDINGS: Gastrointestinal tract: Gaseous distention of the colon and small bowel. No evidence of pneumatosis. Intraperitoneal space: No visible free air. Bones/joints: No acute bony abnormality. XR/XR KUB [id number] IMPRESSION: Gaseous distention of the colon and small bowel. Rectal stool ball no longer definitively visualized. No evidence of pneumatosis or free air. Radiation Dose CTDIVOL = (mGy): DLP = (mGy-cm)
[2021-02-19] MEDS: TRAMadol 50 mg Tablet PO (11:18)
[2021-02-19] MEDS: sodium chloride 0.9% 500 ML IV (11:19)
[2021-02-19 11:47] LABS: Glucose Point of Care 156 mg/dL (70-110)
--- NOTE | 2021-02-19 14:59 | PM.PN ---
Subjective Subjective: Interval history: Patient still complains of hip pain with range of motion, but she states it is improved. According to the nurses, she is much more cooperative and easier to logroll. She has had significant stool secondary to aggressive management of her constipation. Vitals/I&O/Wt Last Vital Signs Temp 98.1 F 02/19/21 07:50 Pulse 84 02/19/21 14:00 Resp 16 02/19/21 12:00 BP 130/80 02/19/21 12:00 Pulse Ox 98 02/19/21 12:00 02/18/21 02/19/21 02/19/21 22:59 06:59 14:59 Intake Total 2590.488 / 4386.013 1507.042 / 5893.055 1378.333 / 1378.333 Output Total 700 / 700 975 / 1675 Balance 1890.488 / 3686.013 532.042 / 4218.055 1378.333 / 1378.333 Weight last 48 hrs Weight 168 lb 9 oz Weight 373 lb 0.354 oz Weight 168 lb Weight 155 lb Physical Exam Narrative: EXAM NARRATIVE: The patient is seen in intensive care unit. She is appropriate and responsive. Const: COMMON NORMALS: no acute distress, average body habitus, patient oriented x3 and alert GENERAL APPEARANCE: cooperative and comfortable ORIENTATION/CONSCIOUSNESS: Yes awake HENMT: COMMON NORMALS: normocephalic and atraumatic HEAD & SCALP: normocephalic and atraumatic Eye: GENERAL EYE: appearance normal, both eyes and all related structures Chest: COMMONS NORMALS: normal inspection of the chest Resp: COMMON NORMALS: normal respiratory effort EFFORT & INSPECTION: Yes able to speak in complete sentences and Yes symmetric chest movement Extremity: LEFT LOWER EXTREMITY: Yes hip joint Left hip: Yes inspection (No ecchymosis or significant swelling), Yes ROM (Still has pain with flexion extension, but less severe) and Yes neurovascular exam (Intact distally) Neuro: COMMON NORMALS: patient oriented x3 SENSORIUM/ORIENTATION: Yes alert Psych: COMMON NORMALS: mental status grossly normal APPEARANCE: Yes grossly normal ATTITUDE: Yes calm and Yes engaged ATTENTION/CONCENTRATION: Yes attention grossly intact Skin: COMMON NORMALS: no rashes or lesions noted GENERAL SKIN EXAM: no rashes or lesions noted Urinary Catheter Management^: Martines: Cath Placed During This Visit: yes Reason for Continuing Indwelling Catheter: Accurate Measurement of Urinary Output in Critically Ill Patients Urinary Catheter Date of Insertion: 02/17/21 Urinary Catheter Time of Insertion: 15:25 Data : 02/19/21 04:55 02/19/21 04:55 Micro: Microbiology 02/17/21 21:32 Blood Culture - Preliminary Blood NEGATIVE TO DATE 02/17/21 15:17 Blood Culture - Preliminary Blood NEGATIVE TO DATE 02/17/21 18:55 MRSA Culture - Final Nose A&P Assessment and plan (1) Primary osteoarthritis of left hip: This 70-year-old woman is seen and evaluated after presentation to the emergency department following an acute event at the [facility] at which time she was unresponsive. She responded to resuscitative therapies, and now was in the intensive care unit awake alert and responsive. The patient appears to answer questions appropriately. From an orthopedic standpoint, the patient states that she ambulated primarily with a cane until a week or so ago. She has had chronic pain in this left hip, but most recently, it has caused her to be unable to ambulate. There was concern regarding the possibility of an impacted subcapital hip fracture. The patient has had significant stool production secondary to aggressive treatment, and overall, she feels much better. The hip is still painful with range of motion, and MRI is pending. Status: Acute Attestations Medical Necessity Statement*: Ongoing care for medical and orthopedic issues. Coding Level of Care Code Acute Candy Catcher for Yola Sierra Diagnoses Primary osteoarthritis of left hip M16.12
--- NOTE | 2021-02-19 15:22 | PM.PN ---
Subjective Subjective: Interval history: Patien no acute events overnight. Overnight Levophed was increased to 10 from 8. Patient states she is feeling a lot better. Patient is looking a lot better. During the day Levophed was switched down to 4. Patient continues to have pain in her hip but as per the nurses aide able to do logroll a lot better today. Patient has had 3-4 large bowel movements since the enema. Has remained afebrile. Currently on 1 L oxygen supplementation. Repeat cheeta exam today morning again demonstrated fluid responsiveness. Vitals/I&O/Wt Last Vital Signs Temp 98.1 F 02/19/21 07:50 Pulse 84 02/19/21 14:00 Resp 16 02/19/21 12:00 BP 130/80 02/19/21 12:00 Pulse Ox 98 02/19/21 12:00 02/19/21 02/19/21 02/19/21 06:59 14:59 22:59 Intake Total 1507.042 / 5893.055 1378.333 / 1378.333 Output Total 975 / 1675 Balance 532.042 / 4218.055 1378.333 / 1378.333 Weight last 48 hrs Weight 76.459 kg Weight 169.2 kg Weight 76.204 kg Weight 70.307 kg Physical Exam Narrative: EXAM NARRATIVE: General: No acute distress, AO x3, edematous, dehydrated oral cavity, weeping skin HEENT: PERRLA, pupils bilaterally equal and reactive Chest: Normal vesicular breath sounds, occasional rhonchi present all over the lung velásquez, crackles present in left lower zone, equal good air entry bilaterally CVS: S1-S2 irregularly irregular, tachycardia, soft pansystolic murmur at apex ,gallops, no rubs Abdomen: Soft, nontender, no organomegaly, bowel sounds present Neuro: No focal deficits, no facial deformity, AO x3, power 3/5 in all limbs, Urinary Catheter Management^: Martines: Cath Placed During This Visit: yes Reason for Continuing Indwelling Catheter: Accurate Measurement of Urinary Output in Critically Ill Patients Urinary Catheter Date of Insertion: 02/17/21 Urinary Catheter Time of Insertion: 15:25 Data : 02/19/21 04:55 02/19/21 04:55 Micro: Microbiology 02/17/21 21:32 Blood Culture - Preliminary Blood NEGATIVE TO DATE 02/17/21 15:17 Blood Culture - Preliminary Blood NEGATIVE TO DATE 02/17/21 18:55 MRSA Culture - Final Nose A&P Assessment and plan (1) Septic shock: Status: Acute (2) Afib: Status: Acute (3) Fecal impaction of colon: Status: Acute (4) Hyponatremia: Status: Acute (5) Hypokalemia: Status: Acute (6) HTN (hypertension): Status: Acute (7) Type 2 diabetes mellitus: Status: Acute (8) Primary osteoarthritis of left hip: Status: Acute Additional A&P Information Shock: Most likely hypovolemic but cannot rule out septic: Unknown source. CT chest, abdomen pelvis negative for any active signs of acute infection. CT abdomen pelvis consistent with diffuse lymphadenopathy and fecal impaction. CT chest with tree-in-bud. Pro-Geraldo negative, MRSA positive, UA negative for signs of infection, cortisol level, TSH within normal limits. Urine Legionella bacterial antigen negative. IV fluid at 75 cc/h. Albumin every 8 hourly for 1 day. For now continue with vancomycin and Zosyn. Will discontinue antibiotics if blood cultures remain negative and patient remains afebrile for next 24 hours. Wean Levophed keeping mean over 65. Keep saturation over 88%. COVID-19 PCR sent out. Isolation precaution. Afib: Reverted to normal sinus rhythm. Paroxysmal A. fib. Continue with amiodarone 200 mg twice daily. Can not AC given history recurrent falls. Leukocytosis: Unlikely from sepsis. Culture results so far negative. CT imaging negative for signs of infection. Patient has remained afebrile. Cannot rule out lymphoma versus leukemia given diffuse lymphadenopathy. Peripheral smear, lymphoma panel sent out. Hyponatremia: Resolving. Serum osmolarity 284. Urine sodium less than 10. Most likely secondary to hypoproteinemia versus third spacing and severe constipation. Continue with IV fluids as above. Repeat CMP in evening. Osteoarthritis of left hip: Unlikely hip fracture: Appreciate orthopedics recommendation. MRI hip. PT/OT eval. Morphine 1 mg IV Q6h PRN, [place] 5 Q6h PRN. Constipation/fecal impaction: Aggressive bowel regimen. X-ray KUB, abdominal series. Code Status: Discussed in detail with patient. She states she would not want any life prolonging measures or chest compressions. DNR/DNI. States in case she is not able to make her medical decisions her son Mohan Ojeda will be making the decisions. Gave a call to Mr. Preston who lives in [place]. He states he talks to her mother once or twice a year. States there is no family closer to [place]. He is agreeable to make medical decisions. Protonix for PUD ppx Heparin for DVT PPX Mechanical soft carb consistent cardiac high-protein diet. Discharge planning: SNF once medically stable and cleared from orthopedics standpoint. Attestations Medical Necessity Statement*: Patient requires further hospitalization for management of shock, leukocytosis, hyponatremia, fecal impaction Critical Care Time: The high probability of a clinically significant, sudden or life threatening deterioration of the patient's [cardiac, GI] system(s) required my full and direct attention, intervention and personal management. The critical care time is as shown. This time is in addition to time spent performing any reported procedures but includes the following: [x] Data and vital sign review and interpretation [x] Patient assessment, examination and intervention [x] Documentation [x] Medication orders and management Critical Care Time (min): 60 Coding Level of Care Code Acute Emergency Room Technician for Chg Fwd Diagnoses Septic shock A41.9; R65.21 Afib I48.91 Fecal impaction of colon K56.41 Hyponatremia E87.1 Hypokalemia E87.6 HTN (hypertension) I10 Type 2 diabetes mellitus E11.9 Primary osteoarthritis of left hip M16.12
[2021-02-19] MEDS: sodium chloride 0.9% 1,000 ML 75 ML IV (16:25)
[2021-02-19 17:42] LABS: Glucose Point of Care 160 mg/dL (70-110)
[2021-02-19] MEDS: pantoprazole 40 mg SDV IVP (18:04)
--- NOTE | 2021-02-19 19:02 | PC.NURSE ---
Shift Note Frequent safety and comfort rounds continue. Orders and/or nursing care completed as indicated. Patient monitored for response to intervention and treatment(s). Education provided includes po amio. Patient and/or ict sales representative verbalize understanding. Will continue to monitor.
[2021-02-19 19:07] LABS: Quest SARS-CoV-2 RNA NOT DETECTED (NOT DETECTED)
[2021-02-19] MEDS: sennosides 8.6 mg Tablet 17.2 MG PO (20:11)
[2021-02-19] MEDS: atorvastatin 40 mg Tablet 20 MG PO (20:12)
[2021-02-20] VITALS (52 sets, daily range): BP systolic 103–136; BP diastolic 5–86; PULSE 80–955; RESP 16–35; TEMP 36.7–37.3; O2SAT 93–99; BMI 28.9
[2021-02-20] MEDS: piperacillin-tazobactam 3.375 GM in sodium chloride 0.9% (plus) 50 ML IV ×3 (04:55→20:12)
[2021-02-20] MEDS: sodium chloride 0.9% 1,000 ML 75 ML IV (04:55)
[2021-02-20 06:34] LABS: Glucose Point of Care 140 mg/dL (70-110)
[2021-02-20 07:09] LABS: Alanine Aminotransferase 16 U/L (0-33); Albumin Level 2.5 g/dL (3.5-5.2); Alkaline Phosphatase 204 IU/L (35-105); Anion Gap 11.4 (5-19); Aspartate Amino Transferase 31 U/L (0-32); Blood Urea Nitrogen 11 mg/dL (8-23); Calcium 7.3 mg/dL (8.5-10.5); Carbon Dioxide 20 mmol/L (22-29); Chloride 112 mmol/L (98-107); Globulin 1.1 g/dL (1.3-4.6); Glucose 101 mg/dL (65-115); Osmolality Calculated 290 mOsm/kg (285-295); Potassium 3.4 mmol/L (3.5-5.1); Sodium 140 mmol/L (136-145); Total Bilirubin 0.6 mg/dL (0.15-1.2); Total Protein 3.6 g/dL (6.6-8.7)
--- NOTE | 2021-02-20 07:31 | PC.NURSE ---
Pt slept most of the night and had one large BM. A few soft blood pressures were taken but corrected to MAP > 65 after waking her up. Remained on 1L NC with Sp02 in the high 90s% throughout the night. Positional changes every two hours were performed with comfort measures.
[2021-02-20] MEDS: vancomycin 1,000 MG in sodium chloride 0.9% 250 ML 250 MG IV (08:12)
--- NOTE | 2021-02-20 08:13 | MR_ITS ---
WS: [id number] MRI LEFT HIP without CONTRAST. COMPARISON: 02/17/2021 Multiplanar, multisequence imaging is performed without contrast. History: Possible stress fracture. Pain. Diffuse soft tissue anasarca throughout the pelvis. There is also edema within the subcutaneous tissu es and muscles surrounding both hips. Severe narrowing of the LEFT hip joint. Subchondral cystic changes on both sides of the hip joint. Th ere is marked osteophytic ridging with loss of the normal joint space. There is bone upon bone at the LEFT hip joint. There are a few small subchondral cystic changes. No fracture identified. No evidenc e for stress fracture. Similar findings of osteoarthritis at the RIGHT hip but to a much lesser extent. The visualized porti ons of the pelvis and SI joints are negative. Pubic rami are intact. There is a small joint effusion at the LEFT hip. Small amount of peritoneal fluid noted within the pelvis. Martines catheter is in place. MR/MR hip LT wo con* [id number] IMPRESSION: 1. No LEFT hip fracture. No stress fracture or pathological fracture identifie d. 2. Severe LEFT hip joint osteoarthritis with bone upon bone, osteophytes and s ubchondral cystic change. 3. Mild to moderate RIGHT hip joint arthritis. 4. Mild diffuse soft tissue edema throughout the pelvis. 5. Small amount of free fluid.
[2021-02-20 08:29] LABS: Basophils % 0.3 %; Eosinophils # 0.4 10^3/uL (0.0-0.8); Eosinophils % 4.5 %; Lymphocytes # 0.4 10^3/uL (0.8-4.8); Lymphocytes % 5.3 %; Mean Corpuscular HGB Conc 32.8 g/dL (30.0-36.0); Mean Corpuscular Volume 94.6 fl (81-99); Mean Platelet Volume 9.7 fL (7.4-10.4); Monocytes # 0.6 10^3/uL (0.2-0.9); Monocytes % 8.1 %; Neutrophils # 6.12 10^3/uL (1.8-7.7); Neutrophils % 78.8 %; Nucleated Red Blood Cells % 0 %; Platelet Count 106 10^3/cmm (130-400); Red Blood Count 2.03 10^6/uL (4.1-5.3); Red Cell Distribution Width 17.2 % (12.1-15.1); White Blood Count 7.8 10^3/uL (4.0-10.0)
[2021-02-20 08:32] LABS: Hematocrit 19.2 % (37.0-47.0); Hemoglobin 6.3 g/dL (11.5-15.3)
[2021-02-20 08:52] LABS: Glucose Point of Care 107 mg/dL (70-110)
[2021-02-20] MEDS: ipratropium-albuterol 3 mL Neb INHALATION ×3 (09:04→20:16)
[2021-02-20] MEDS: budesonide 0.5 mg/2 mL Neb INHALATION ×2 (09:04→20:16)
--- NOTE | 2021-02-20 09:47 | PC.CHAP ---
Pastoral Care Encounter/Spiritual Assessment Type of Contact [] Declined patient portal concierge visit [] Patient/Family/Request visit [] Outpatient visit [] Follow-up visit [] Physician referral [] Code/Alert [x] Routine visit [] Staff referral [] Actively dying [x] Patient sleeping [] Family support [] [] Out of room [] Palliative care [] [] Receiving care in room [] Pre-surgical visit [] Trauma [] Long length of stay [x] ICU visit [] Other: Relational/Emotional Strength [] Patient feels connected with others/family/visitors/staff [] Distress [] Loneliness/isolation [] Abandonment Spirituality of Patient [] Person of Nilda [] Attends Religious of their Nilda [] Believes in Prayer [] Reads Bible or Jew materials [] There are Spiritual issues to be addressed Fur Glazer Interventions [x] Prayer [] Active listening [] Non-anxious presence [] Spiritual/emotional support [] Crisis/trauma care [] Spiritual counseling [] Bereavement support [] Provided bereavement packet [] Provided Bible/devotional materials [] Provided toy/stuffed animal, coloring book to patient or family member [] Provided Communion [] Anointing/[place] [] Salvation [x] Completed spiritual assessment [] Other: Impact on Illness or Injury [] Angry [] Fearful [] Anxious [] Often cries [] Exhaustion [] Unable to work [] Unable to attend yarsanism [] Unable to walk/stand [] Unable to read [] Unable to drive [] Unable to eat/drink [] Unable to sleep [] Unable to be with family [] Patient intubated [] Other: Summary Time spent with patient
[2021-02-20] MEDS: amiodarone 200 mg Tablet PO ×2 (10:01→18:20)
[2021-02-20 11:27] LABS: Glucose Point of Care 104 mg/dL (70-110)
--- NOTE | 2021-02-20 11:29 | PC.NURSE ---
called blood bank to see if blood was ready. They have not came to [facility] yet, Vida states that she is sending someone now.
--- NOTE | 2021-02-20 13:00 | PC.SOCIAL ---
IMM Update: pg 2 of IMM updated and reviewed w/ patient. Copy provided.
--- NOTE | 2021-02-20 14:10 | PM.PN ---
Subjective Subjective: Interval history: Patient is doing better. She is still complaining of left hip pain, but per MRI, there is no fracture. This is discussed with the patient. Vitals/I&O/Wt Last Vital Signs Temp 98.1 F 02/19/21 07:50 Pulse 88 02/20/21 06:00 Resp 16 02/20/21 02:59 BP 130/80 02/19/21 12:00 Pulse Ox 99 02/20/21 02:59 02/19/21 02/20/21 02/20/21 22:59 06:59 14:59 Intake Total 815.24 / 2363.118 1170 / 3533.118 400 / 400 Output Total 800 / 800 450 / 1250 Balance 15.24 / 1563.118 720 / 2283.118 400 / 400 Weight last 48 hrs Weight 168 lb 9 oz Weight 168 lb 9 oz Physical Exam Narrative: EXAM NARRATIVE: The patient is seen in intensive care unit. She is appropriate and responsive. Const: COMMON NORMALS: no acute distress, average body habitus, patient oriented x3 and alert GENERAL APPEARANCE: cooperative and comfortable ORIENTATION/CONSCIOUSNESS: Yes awake HENMT: COMMON NORMALS: normocephalic and atraumatic HEAD & SCALP: normocephalic and atraumatic Eye: GENERAL EYE: appearance normal, both eyes and all related structures Chest: COMMONS NORMALS: normal inspection of the chest Resp: COMMON NORMALS: normal respiratory effort EFFORT & INSPECTION: Yes able to speak in complete sentences and Yes symmetric chest movement Extremity: LEFT LOWER EXTREMITY: Yes hip joint (Painful range of motion. Improving) Neuro: COMMON NORMALS: patient oriented x3 SENSORIUM/ORIENTATION: Yes alert Psych: COMMON NORMALS: mental status grossly normal APPEARANCE: Yes grossly normal ATTITUDE: Yes calm and Yes engaged ATTENTION/CONCENTRATION: Yes attention grossly intact Skin: COMMON NORMALS: no rashes or lesions noted GENERAL SKIN EXAM: no rashes or lesions noted Urinary Catheter Management^: Martines: Cath Placed During This Visit: yes Reason for Continuing Indwelling Catheter: Accurate Measurement of Urinary Output in Critically Ill Patients Urinary Catheter Date of Insertion: 02/17/21 Urinary Catheter Time of Insertion: 15:25 Data : 02/20/21 07:30 02/20/21 06:32 A&P Assessment and plan (1) Primary osteoarthritis of left hip: This 70-year-old woman is seen and evaluated after presentation to the emergency department following an [facility] event [facility] at which time she was unresponsive. She responded to resuscitative therapies, and now was in the intensive care unit awake alert and responsive. Patient is much more alert today. She is advised of the MRI results which indicate no evidence of fracture, but she does have severe osteoarthritis of the hip. I have advised the patient that when she is discharged from the hospital and has returned to her normal health state, we could discuss possibility of hip replacement surgeries. Certainly, this would be a ways down the road for her, and she understands this. From orthopedic perspective, I will sign off from her care as she continues to do well and will work with the medicine team until she is stable enough to be discharged. Status: Acute Attestations Medical Necessity Statement*: Ongoing medical care. Signing off from orthopedic perspective. Coding Level of Care Code Acute Material Liaison for Yola Sierra Diagnoses Primary osteoarthritis of left hip M16.12
--- NOTE | 2021-02-20 14:11 | PC.NURSE ---
called to check to see if blood was ready. States they are working on it.
[2021-02-20] MEDS: sodium chloride 0.9% (100 ml) 100 ML 10 ML (16:39)
[2021-02-20] MEDS: ondansetron 2 mg/ML SDV 2 mL 4 MG IVP (16:39)
[2021-02-20 18:10] LABS: Glucose Point of Care 156 mg/dL (70-110)
[2021-02-20] MEDS: heparin 5,000 unit/mL INJ 1 mL 5000 UNIT SUBCUT (18:20)
[2021-02-20] MEDS: pantoprazole 40 mg SDV IVP (18:20)
[2021-02-20] MEDS: FUROsemide 10 mg/mL SDV 4mL 40 MG IVP (18:38)
--- NOTE | 2021-02-20 19:25 | PM.PN ---
Subjective Subjective: Interval history: Patient was seen and examined this morning. She denied any chest pain shortness of breath nausea vomiting abdominal pain. Was complaining of left hip pain with minimal movement. Significant drop in H&H. Medications: Reviewed: Yes Vitals/I&O/Wt Last Vital Signs Temp 98.8 F 02/20/21 15:48 Pulse 96 02/20/21 15:45 Resp 22 H 02/20/21 15:48 BP 107/5 02/20/21 15:48 Pulse Ox 93 02/20/21 15:48 02/20/21 02/20/21 02/20/21 06:59 14:59 22:59 Intake Total 1170 / 3533.118 400 / 400 680 / 1080 Output Total 450 / 1250 500 / 500 Balance 720 / 2283.118 400 / 400 180 / 580 Weight last 48 hrs Weight 76.459 kg Weight 76.459 kg Physical Exam Const: COMMON NORMALS: patient oriented x3 HENMT: COMMON NORMALS: normocephalic and atraumatic HEAD & SCALP: normocephalic and atraumatic Resp: OTHER: Diminished air entry bilaterally Cardio: COMMON NORMALS: regular rate, regular rhythm, S1 normal heart sound present, S2 normal heart sound present, No gallops present (Cardio), No murmurs present (Cardio), No rub (Cardio) and Peripheral pulses 2+ throughout RATE: regular rate RHYTHM: regular rhythm HEART SOUNDS: S1 normal heart sound present and S2 normal heart sound present PERIPHERAL PULSES: Peripheral pulses 2+ throughout GI: COMMON NORMALS: Normal to inspection, nondistended, normoactive bowel sounds present, Soft to palpation, non-tender, No hepatosplenomegaly present and no masses AUSCULTATION: Yes normoactive bowel sounds PALPATION: Yes Soft to palpation and Yes No hepatosplenomegaly present RECTAL EXAM: deferred Extremity: NARRATIVE EXTREMITY EXAM: Bilateral lower extremity 3+ pitting edema Neuro: COMMON NORMALS: patient oriented x3 Urinary Catheter Management^: Martines: Cath Placed During This Visit: yes Reason for Continuing Indwelling Catheter: Accurate Measurement of Urinary Output in Critically Ill Patients Urinary Catheter Date of Insertion: 02/17/21 Urinary Catheter Time of Insertion: 15:25 Data : 02/20/21 07:30 02/20/21 06:32 A&P Assessment and plan (1) Septic shock: Status: Acute (2) Afib: Status: Acute (3) Fecal impaction of colon: Status: Acute (4) Hyponatremia: Status: Acute (5) Hypokalemia: Status: Acute (6) HTN (hypertension): Status: Acute (7) Type 2 diabetes mellitus: Status: Acute (8) Primary osteoarthritis of left hip: Status: Acute Additional A&P Information Anemia: Rule out possible GI bleed: H&H has dropped to: 6.3/19.2 as compared to admission H&H of 10.3/32. Denies any chest pain, shortness of breath. Vitals are stable. FOBT Hold prophylactic heparin subcu. 2 unit PRBC Protonix 40 mg IV daily Monitor H&H Shock: Most likely hypovolemic but cannot rule out septic: Unknown source. CT chest, abdomen pelvis negative for any active signs of acute infection. CT abdomen pelvis consistent with diffuse lymphadenopathy and fecal impaction. CT chest with tree-in-bud. Pro-Geraldo negative, MRSA positive, UA negative for signs of infection, cortisol level, TSH within normal limits. COVID-19 PCR :Negative Urine Legionella bacterial antigen negative. IV fluid at 75 cc/h. And albumin every 8 hourly for 1 day. Has been discontinued. As the patient is hemodynamically stable Initially on vancomycin and Zosyn. Vancomycin has been discontinued. We will de-escalate Zosyn. Of Levophed. Afib: Reverted to normal sinus rhythm. Paroxysmal A. fib. Continue with amiodarone 200 mg twice daily. Can not AC given history recurrent falls. Leukocytosis: Unlikely from sepsis. Culture results so far negative. CT imaging negative for signs of infection. Patient has remained afebrile. Cannot rule out lymphoma versus leukemia given diffuse lymphadenopathy. Peripheral smear, lymphoma panel sent out. Hyponatremia: Resolving. Serum osmolarity 284. Urine sodium less than 10. Most likely secondary to hypoproteinemia versus third spacing and severe constipation. Continue with IV fluids as above. Repeat CMP in evening. Osteoarthritis of left hip: MRI and CT of the left hip.: Advanced primary osteoarthritis PT/OT eval. Morphine 1 mg IV Q6h PRN, [place] 5 Q6h PRN. Appreciate orthopedic recommendation Constipation/fecal impaction: Aggressive bowel regimen. X-ray KUB, abdominal series. Code Status: DNR/DNI. States in case she is not able to make her medical decisions her son Mohan Ojeda will be making the decisions. Mr. Preston who lives in [place]. He states he talks to her mother once or twice a year. States there is no family closer to [place]. He is agreeable to make medical decisions. Protonix for PUD ppx Heparin for DVT PPX Mechanical soft carb consistent cardiac high-protein diet. Discharge planning: SNF once medically stable and cleared from orthopedics standpoint. Attestations Medical Necessity Statement*: Patient needs to be in hospital for management of anemia. Coding Level of Care Code Acute Assurance Sourcing Manager for Chg Fwd Diagnoses Septic shock A41.9; R65.21 Afib I48.91 Fecal impaction of colon K56.41 Hyponatremia E87.1 Hypokalemia E87.6 HTN (hypertension) I10 Type 2 diabetes mellitus E11.9 Primary osteoarthritis of left hip M16.12
[2021-02-20] MEDS: magnesium hydroxide 30 mL UDC PO (20:12)
[2021-02-20] MEDS: sennosides 8.6 mg Tablet 17.2 MG PO (20:12)
[2021-02-20] MEDS: atorvastatin 40 mg Tablet 20 MG PO (20:12)
[2021-02-20] MEDS: insulin lispro 100 unit/1 mL SUBCUT (21:32)
[2021-02-20 21:41] LABS: Glucose Point of Care 167 mg/dL (70-110)
[2021-02-21] VITALS (15 sets, daily range): BP systolic 124–128; BP diastolic 62–68; PULSE 84–100; RESP 20–29; TEMP 37.1; O2SAT 94–97; BMI 28.9
[2021-02-21 03:49] LABS: Basophils # 0.1 10^3/uL (0.0-0.1); Basophils % 0.7 %; Eosinophils # 0.4 10^3/uL (0.0-0.8); Eosinophils % 4.2 %; Lymphocytes # 0.5 10^3/uL (0.8-4.8); Lymphocytes % 5.9 %; Mean Corpuscular HGB Conc 32.4 g/dL (30.0-36.0); Mean Corpuscular Hemoglobin 29.4 pg (28.0-34.0); Mean Corpuscular Volume 90.9 fl (81-99); Mean Platelet Volume 9.3 fL (7.4-10.4); Monocytes # 0.9 10^3/uL (0.2-0.9); Monocytes % 9.3 %; Neutrophils # 7.01 10^3/uL (1.8-7.7); Neutrophils % 76.3 %; Nucleated Red Blood Cells % 0 %; Platelet Count 86 10^3/cmm (130-400); Red Blood Count 3.74 10^6/uL (4.1-5.3); Red Cell Distribution Width 18.4 % (12.1-15.1); White Blood Count 9.2 10^3/uL (4.0-10.0)
[2021-02-21 04:06] LABS: Anion Gap 8.9 (5-19); Blood Urea Nitrogen 9 mg/dL (8-23); Calcium 7.7 mg/dL (8.5-10.5); Carbon Dioxide 22 mmol/L (22-29); Chloride 111 mmol/L (98-107); Glucose 83 mg/dL (65-115); Osmolality Calculated 286 mOsm/kg (285-295); Sodium 139 mmol/L (136-145)
[2021-02-21 04:45] LABS: Potassium 2.9 mmol/L (3.5-5.1)
[2021-02-21] MEDS: piperacillin-tazobactam 3.375 GM in sodium chloride 0.9% (plus) 50 ML IV (04:53)
[2021-02-21 07:56] LABS: Glucose Point of Care 100 mg/dL (70-110)
[2021-02-21] MEDS: budesonide 0.5 mg/2 mL Neb INHALATION ×2 (09:22→20:16)
[2021-02-21] MEDS: ipratropium-albuterol 3 mL Neb INHALATION ×2 (09:22→20:16)
[2021-02-21] MEDS: amiodarone 200 mg Tablet PO ×2 (09:24→17:30)
[2021-02-21] MEDS: TRAMadol 50 mg Tablet PO (09:24)
--- NOTE | 2021-02-21 09:40 | PC.NURSE ---
Pt taken to CT with RT. When hooked back up to telemetry pt HR in the 70's. Tolerated well.
--- NOTE | 2021-02-21 10:40 | PC.CHAP ---
Pastoral Care Encounter/Spiritual Assessment Type of Contact [] Declined charge operator visit [] Patient/Family/Request visit [] Outpatient visit [x] Follow-up visit [] Physician referral [] Code/Alert [x] Routine visit [] Staff referral [] Actively dying [] Patient sleeping [] Family support [] [] Out of room [] Palliative care [] [x] Receiving care in room [] Pre-surgical visit [] Trauma [] Long length of stay [] ICU visit [] Other: Relational/Emotional Strength [] Patient feels connected with others/family/visitors/staff [] Distress [] Loneliness/isolation [] Abandonment Spirituality of Patient [] Person of Nilda [] Attends Quaker of their Nilda [] Believes in Prayer [] Reads Bible or Mandaen materials [] There are Spiritual issues to be addressed Manager Revenue Interventions [] Prayer [] Active listening [] Non-anxious presence [] Spiritual/emotional support [] Crisis/trauma care [] Spiritual counseling [] Bereavement support [] Provided bereavement packet [] Provided Bible/devotional materials [] Provided toy/stuffed animal, coloring book to patient or family member [] Provided Communion [] Anointing/[place] [] Salvation [] Completed spiritual assessment [] Other: Impact on Illness or Injury [] Angry [] Fearful [] Anxious [] Often cries [] Exhaustion [] Unable to work [] Unable to attend amish [] Unable to walk/stand [] Unable to read [] Unable to drive [] Unable to eat/drink [] Unable to sleep [] Unable to be with family [] Patient intubated [] Other: Summary Time spent with patient
--- NOTE | 2021-02-21 16:53 | P.PN_ITS ---
Subjective Subjective: Interval history: Patient was seen and examined this morning. She was complaining of nausea as well as 1 episode of vomiting after the meal. H&H has remained stable after transfusion: At . Has no bright red blood per rectum, no dark stool, no hematuria no bloody vomiting. Medications: Reviewed: Yes Vitals/I&O/Wt Last Vital Signs Temp 99.1 F 02/20/21 20:02 Pulse 100 02/21/21 14:41 Resp 20 H 02/21/21 09:23 BP 124/62 02/21/21 00:45 Pulse Ox 95 02/21/21 09:23 02/21/21 02/21/21 02/21/21 06:59 14:59 22:59 Intake Total 50 / 1880 Output Total 1850 / 2350 Balance -1800 / -470 Weight last 48 hrs Weight 76.459 kg Weight 76.459 kg Physical Exam Const: COMMON NORMALS: patient oriented x3 HENMT: COMMON NORMALS: normocephalic and atraumatic HEAD & SCALP: normocephalic and atraumatic Resp: OTHER: Diminished air entry bilaterally Cardio: COMMON NORMALS: regular rate, regular rhythm, S1 normal heart sound present, S2 normal heart sound present, No gallops present (Cardio), No murmurs present (Cardio), No rub (Cardio) and Peripheral pulses 2+ throughout RATE: regular rate RHYTHM: regular rhythm HEART SOUNDS: S1 normal heart sound present and S2 normal heart sound present PERIPHERAL PULSES: Peripheral pulses 2+ throughout GI: COMMON NORMALS: Normal to inspection, nondistended, normoactive bowel sounds present, Soft to palpation, non-tender, No hepatosplenomegaly present and no masses AUSCULTATION: Yes normoactive bowel sounds PALPATION: Yes Soft to palpation and Yes No hepatosplenomegaly present RECTAL EXAM: deferred Extremity: NARRATIVE EXTREMITY EXAM: Bilateral lower extremity 3+ pitting edema Neuro: COMMON NORMALS: patient oriented x3 Urinary Catheter Management^: Martines: Cath Placed During This Visit: yes Reason for Continuing Indwelling Catheter: Accurate Measurement of Urinary Output in Critically Ill Patients Urinary Catheter Date of Insertion: 02/17/21 Urinary Catheter Time of Insertion: 15:25 Data : 02/21/21 03:10 02/21/21 03:10 A&P Assessment and plan (1) Septic shock: Status: Acute (2) Afib: Status: Acute (3) Fecal impaction of colon: Status: Acute (4) Hyponatremia: Status: Acute (5) Hypokalemia: Status: Acute (6) HTN (hypertension): Status: Acute (7) Type 2 diabetes mellitus: Status: Acute (8) Primary osteoarthritis of left hip: Status: Acute Additional A&P Information Anemia: Rule out possible GI bleed: H&H has dropped to: 6.3/19.2 as compared to admission H&H of 10.3/32. Denies any chest pain, shortness of breath. Vitals are stable. FOBT Hold prophylactic heparin subcu. 2 unit PRBC Protonix 40 mg IV daily Monitor H&H Shock: Most likely hypovolemic but cannot rule out septic: Unknown source. CT chest, abdomen pelvis negative for any active signs of acute infection. CT abdomen pelvis consistent with diffuse lymphadenopathy and fecal impaction. CT chest with tree-in-bud. Pro-Geraldo negative, MRSA positive, UA negative for signs of infection, cortisol level, TSH within normal limits. COVID-19 PCR :Negative Urine Legionella bacterial antigen negative. IV fluid at 75 cc/h. And albumin every 8 hourly for 1 day. Has been discontinued. As the patient is hemodynamically stable Initially on vancomycin and Zosyn. Vancomycin has been discontinued. We will de- escalate Zosyn. Of Levophed. Afib: Reverted to normal sinus rhythm. Paroxysmal A. fib. Continue amiodarone 200 mg daily. Can not AC given history recurrent falls and possible Slow G/I Bleed Leukocytosis: Unlikely from sepsis. Culture results so far negative. CT imaging negative for signs of infection. Patient has remained afebrile. Cannot rule out lymphoma versus leukemia given diffuse lymphadenopathy. Peripheral smear, lymphoma panel sent out. Hyponatremia: Resolving. Serum osmolarity 284. Urine sodium less than 10. Most likely secondary to hypoproteinemia versus third spacing and severe constipation. Continue with IV fluids as above. Repeat CMP in evening. Osteoarthritis of left hip: MRI and CT of the left hip.: Advanced primary osteoarthritis PT/OT eval. Morphine 1 mg IV Q6h PRN, [place] 5 Q6h PRN. Appreciate orthopedic : follow up as outpatient for further management. Constipation/fecal impaction: Aggressive bowel regimen. X-ray KUB, abdominal series. Code Status: DNR/DNI. States in case she is not able to make her medical decisions her son Mohan Ojeda will be making the decisions. Mr. Preston who lives in [place]. He states he talks to her mother once or twice a year. States there is no family closer to [place]. He is agreeable to make medical decisions. Protonix for PUD ppx Heparin for DVT PPX Mechanical soft carb consistent cardiac high-protein diet. Discharge planning: SNF once medically stable and cleared from orthopedics standpoint. Attestations Medical Necessity Statement*: Patient needs to be in hospital for management of severe anemia, shock. Coding Level of Care Code Acute Continuous Absorption Process Operator for Chg Fwd Exam Expanded Problem Focused Diagnoses Septic shock A41.9; R65.21 Afib I48.91 Fecal impaction of colon K56.41 Hyponatremia E87.1 Hypokalemia E87.6 HTN (hypertension) I10 Type 2 diabetes mellitus E11.9 Primary osteoarthritis of left hip M16.12
[2021-02-21 17:26] LABS: Glucose Point of Care 192 mg/dL (70-110)
[2021-02-21] MEDS: pantoprazole 40 mg SDV IVP (17:30)
[2021-02-21] MEDS: insulin lispro 100 unit/1 mL SUBCUT ×2 (17:31→20:18)
[2021-02-21 20:16] LABS: Glucose Point of Care 211 mg/dL (70-110)
[2021-02-21] MEDS: sennosides 8.6 mg Tablet 17.2 MG PO (20:18)
[2021-02-21] MEDS: atorvastatin 40 mg Tablet 20 MG PO (20:18)
[2021-02-22] VITALS (30 sets, daily range): BP systolic 77–121; BP diastolic 53–78; PULSE 80–124; RESP 16–28; TEMP 37; O2SAT 87–96; BMI 31.7
[2021-02-22 00:47] LABS: Leuk/Lymp. Number of Markers 22; Leukemia/Lymph. Clinical Infor NOT GIVEN; Leukemia/Lymph. Spec Type R; Leukemia/Lymph. Viability 94 %
[2021-02-22 04:58] LABS: Basophils # 0.1 10^3/uL (0.0-0.1); Basophils % 0.7 %; Eosinophils # 0.5 10^3/uL (0.0-0.8); Eosinophils % 4.3 %; Hematocrit 36.6 % (37.0-47.0); Hemoglobin 11.9 g/dL (11.5-15.3); Lymphocytes # 0.6 10^3/uL (0.8-4.8); Mean Corpuscular HGB Conc 32.5 g/dL (30.0-36.0); Mean Corpuscular Hemoglobin 29.3 pg (28.0-34.0); Mean Corpuscular Volume 90.1 fl (81-99); Mean Platelet Volume 10.1 fL (7.4-10.4); Monocytes % 9.4 %; Neutrophils # 8.11 10^3/uL (1.8-7.7); Neutrophils % 76.7 %; Nucleated Red Blood Cells % 0 %; Platelet Count 85 10^3/cmm (130-400); Red Blood Count 4.06 10^6/uL (4.1-5.3); Red Cell Distribution Width 18.9 % (12.1-15.1); White Blood Count 10.6 10^3/uL (4.0-10.0)
[2021-02-22 05:25] LABS: Anion Gap 10.2 (5-19); Blood Urea Nitrogen 12 mg/dL (8-23); Calcium 7.7 mg/dL (8.5-10.5); Carbon Dioxide 23 mmol/L (22-29); Chloride 107 mmol/L (98-107); Glucose 75 mg/dL (65-115); Osmolality Calculated 282 mOsm/kg (285-295); Potassium 3.2 mmol/L (3.5-5.1); Sodium 137 mmol/L (136-145)
[2021-02-22 09:10] LABS: Glucose Point of Care 97 mg/dL (70-110)
--- NOTE | 2021-02-22 09:21 | PC.CHAP ---
Pastoral Care Encounter/Spiritual Assessment Type of Contact [] Declined real estate appraiser visit [] Patient/Family/Request visit [] Outpatient visit [] Follow-up visit [] Physician referral [] Code/Alert [x] Routine visit [] Staff referral [] Actively dying [x] Patient sleeping [] Family support [] [] Out of room [] Palliative care [] [] Receiving care in room [] Pre-surgical visit [] Trauma [] Long length of stay [x] ICU visit [] Other: Relational/Emotional Strength [] Patient feels connected with others/family/visitors/staff [] Distress [] Loneliness/isolation [] Abandonment Spirituality of Patient [] Person of Nilda [] Attends Yazidism of their Nilda [] Believes in Prayer [] Reads Bible or Holiness materials [] There are Spiritual issues to be addressed Shell Molder Interventions [x] Prayer [] Active listening [] Non-anxious presence [] Spiritual/emotional support [] Crisis/trauma care [] Spiritual counseling [] Bereavement support [] Provided bereavement packet [] Provided Bible/devotional materials [] Provided toy/stuffed animal, coloring book to patient or family member [] Provided Communion [] Anointing/[place] [] Salvation [x] Completed spiritual assessment [] Other: Impact on Illness or Injury [] Angry [] Fearful [] Anxious [] Often cries [] Exhaustion [] Unable to work [] Unable to attend adventist [] Unable to walk/stand [] Unable to read [] Unable to drive [] Unable to eat/drink [] Unable to sleep [] Unable to be with family [] Patient intubated [] Other: Summary Time spent with patient
[2021-02-22] MEDS: budesonide 0.5 mg/2 mL Neb INHALATION ×2 (09:36→20:22)
[2021-02-22] MEDS: ipratropium-albuterol 3 mL Neb INHALATION ×3 (09:36→20:22)
[2021-02-22] MEDS: lidocaine 1% 5 ML in potassium chloride premix 100 ML 50 ML IV (09:48)
[2021-02-22] MEDS: cefTRIAXone 1,000 MG in sodium chloride 0.9% (plus) 50 ML 100 MG IV (09:48)
[2021-02-22] MEDS: amiodarone 200 mg Tablet PO (09:48)
--- NOTE | 2021-02-22 11:00 | P.PN_ITS ---
Subjective Subjective: Interval history: Patient was seen and examined this morning. No acute event overnight. Overall she is doing better.Vitals and labs have been reviewed. Medications: Reviewed: Yes Vitals/I&O/Wt Last Vital Signs Temp 99.1 F 02/20/21 20:02 Pulse 99 02/22/21 09:42 Resp 22 H 02/22/21 09:39 BP 124/62 02/21/21 00:45 Pulse Ox 96 02/22/21 09:39 02/21/21 02/22/21 02/22/21 22:59 06:59 14:59 Intake Total 260 / 260 Output Total 750 / 750 Balance 260 / 260 -750 / -490 Weight last 48 hrs Weight 83.915 kg Weight 76.459 kg Physical Exam Const: COMMON NORMALS: patient oriented x3 HENMT: COMMON NORMALS: normocephalic and atraumatic HEAD & SCALP: normocephalic and atraumatic Resp: OTHER: Diminished air entry bilaterally Cardio: COMMON NORMALS: regular rate, regular rhythm, S1 normal heart sound present, S2 normal heart sound present, No gallops present (Cardio), No murmurs present (Cardio), No rub (Cardio) and Peripheral pulses 2+ throughout RATE: regular rate RHYTHM: regular rhythm HEART SOUNDS: S1 normal heart sound present and S2 normal heart sound present PERIPHERAL PULSES: Peripheral pulses 2+ throughout GI: COMMON NORMALS: Normal to inspection, nondistended, normoactive bowel sounds present, Soft to palpation, non-tender, No hepatosplenomegaly present and no masses AUSCULTATION: Yes normoactive bowel sounds PALPATION: Yes Soft to palpation and Yes No hepatosplenomegaly present RECTAL EXAM: deferred Extremity: NARRATIVE EXTREMITY EXAM: Bilateral lower extremity 3+ pitting edema Neuro: COMMON NORMALS: patient oriented x3 Urinary Catheter Management^: Martines: Cath Placed During This Visit: yes Reason for Continuing Indwelling Catheter: Accurate Measurement of Urinary Output in Critically Ill Patients Urinary Catheter Date of Insertion: 02/17/21 Urinary Catheter Time of Insertion: 15:25 Data : 02/22/21 04:40 02/22/21 04:40 A&P Assessment and plan (1) Septic shock: Status: Acute (2) Afib: Status: Acute (3) Fecal impaction of colon: Status: Acute (4) Hyponatremia: Status: Acute (5) Hypokalemia: Status: Acute (6) HTN (hypertension): Status: Acute (7) Type 2 diabetes mellitus: Status: Acute (8) Primary osteoarthritis of left hip: Status: Acute Additional A&P Information Anemia: Rule out possible GI bleed: H&H has dropped to: 6.3/19.2 as compared to admission H&H of 10.3/32. Denies any chest pain, shortness of breath. Vitals are stable. FOBT Hold prophylactic heparin subcu. 2 unit PRBC Protonix 40 mg IV daily Monitor H&H Shock: Most likely hypovolemic but cannot rule out septic: Unknown source. CT chest, abdomen pelvis negative for any active signs of acute infection. CT abdomen pelvis consistent with diffuse lymphadenopathy and fecal impaction. CT chest with tree-in-bud. Pro-Geraldo negative, MRSA positive, UA negative for signs of infection, cortisol level, TSH within normal limits. COVID-19 PCR :Negative Urine Legionella bacterial antigen negative. IV fluid at 75 cc/h. And albumin every 8 hourly for 1 day. Has been discontinued. As the patient is hemodynamically stable Initially on vancomycin and Zosyn. Vancomycin has been discontinued. We will de- escalate Zosyn. Of Levophed. Afib: Reverted to normal sinus rhythm. Paroxysmal A. fib. Continue amiodarone 200 mg daily. Can not AC given history recurrent falls and possible Slow G/I Bleed Leukocytosis: Unlikely from sepsis. Culture results so far negative. CT imaging negative for signs of infection. Patient has remained afebrile. Cannot rule out lymphoma versus leukemia given diffuse lymphadenopathy. Peripheral smear, lymphoma panel sent out. Hyponatremia: Resolving. Serum osmolarity 284. Urine sodium less than 10. Most likely secondary to hypoproteinemia versus third spacing and severe constipation. Continue with IV fluids as above. Repeat CMP in evening. Osteoarthritis of left hip: MRI and CT of the left hip.: Advanced primary osteoarthritis PT/OT eval. Morphine 1 mg IV Q6h PRN, [place] 5 Q6h PRN. Appreciate orthopedic : follow up as outpatient for further management. Constipation/fecal impaction: Aggressive bowel regimen. X-ray KUB, abdominal series. Code Status: DNR/DNI. States in case she is not able to make her medical decisions her son Mohan Ojeda will be making the decisions. Mr. Preston who lives in [place]. He states he talks to her mother once or twice a year. States there is no family closer to [place]. He is agreeable to make medical decisions. Protonix for PUD ppx Heparin for DVT PPX Mechanical soft carb consistent cardiac high-protein diet. Discharge planning: SNF once medically stable and cleared from orthopedics standpoint. Attestations Medical Necessity Statement*: Patient needs to the hospital for management of shock. Coding Level of Care Code Acute Addiction Counselor for g Fwd Diagnoses Septic shock A41.9; R65.21 Afib I48.91 Fecal impaction of colon K56.41 Hyponatremia E87.1 Hypokalemia E87.6 HTN (hypertension) I10 Type 2 diabetes mellitus E11.9 Primary osteoarthritis of left hip M16.12
[2021-02-22 11:29] LABS: Glucose Point of Care 130 mg/dL (70-110)
[2021-02-22] MEDS: TRAMadol 50 mg Tablet PO (11:39)
--- NOTE | 2021-02-22 12:46 | PC.NURSE ---
Patient stated she just doesn't feel like eating. Ensure supplement drink offered and patient refused.
--- NOTE | 2021-02-22 13:43 | PC.NURSE ---
Dilma assisted to chair with 2 assist. when put back to bed she was a complete assist and unable to move her legs. She states that she is really weak, too weak to move. Spoke with PT, states they will work with her again.
--- NOTE | 2021-02-22 14:38 | PC.SOCIAL ---
IMM Update: pg 2 of IMM updated and reviewed w/ patient. Copy provided.
[2021-02-22 17:40] LABS: Glucose Point of Care 149 mg/dL (70-110)
[2021-02-22] MEDS: pantoprazole 40 mg SDV IVP (17:42)
[2021-02-22] MEDS: sennosides 8.6 mg Tablet 17.2 MG PO (20:06)
[2021-02-22] MEDS: atorvastatin 40 mg Tablet 20 MG PO (20:06)
[2021-02-22] MEDS: insulin lispro 100 unit/1 mL SUBCUT (20:08)
[2021-02-22 20:27] LABS: Glucose Point of Care 173 mg/dL (70-110)
[2021-02-23] VITALS (16 sets, daily range): BP systolic 89–124; BP diastolic 57–73; PULSE 80–94; RESP 16–23; TEMP 36.6–36.9; O2SAT 91–97
[2021-02-23] MEDS: ipratropium-albuterol 3 mL Neb INHALATION ×2 (02:12→10:04)
[2021-02-23 05:03] LABS: Basophils # 0.1 10^3/uL (0.0-0.1); Basophils % 0.5 %; Eosinophils # 0.4 10^3/uL (0.0-0.8); Eosinophils % 4.3 %; Hematocrit 35.7 % (37.0-47.0); Hemoglobin 11.8 g/dL (11.5-15.3); Lymphocytes # 0.6 10^3/uL (0.8-4.8); Mean Corpuscular HGB Conc 33.1 g/dL (30.0-36.0); Mean Corpuscular Hemoglobin 29.7 pg (28.0-34.0); Mean Corpuscular Volume 89.9 fl (81-99); Monocytes # 0.9 10^3/uL (0.2-0.9); Monocytes % 9.2 %; Neutrophils # 7.19 10^3/uL (1.8-7.7); Neutrophils % 77.4 %; Nucleated Red Blood Cells % 0 %; Platelet Count 71 10^3/cmm (130-400); Red Blood Count 3.97 10^6/uL (4.1-5.3); Red Cell Distribution Width 19.1 % (12.1-15.1); White Blood Count 9.3 10^3/uL (4.0-10.0)
[2021-02-23 05:31] LABS: Anion Gap 13.4 (5-19); Blood Urea Nitrogen 16 mg/dL (8-23); Calcium 7.8 mg/dL (8.5-10.5); Carbon Dioxide 21 mmol/L (22-29); Chloride 104 mmol/L (98-107); Glucose 116 mg/dL (65-115); Osmolality Calculated 282 mOsm/kg (285-295); Potassium 3.4 mmol/L (3.5-5.1); Sodium 135 mmol/L (136-145)
[2021-02-23 07:36] LABS: Glucose Point of Care 132 mg/dL (70-110)
[2021-02-23] MEDS: amiodarone 200 mg Tablet PO (07:40)
--- NOTE | 2021-02-23 09:10 | PC.CHAP ---
Pastoral Care Encounter/Spiritual Assessment Type of Contact [] Declined sander operator visit [] Patient/Family/Request visit [] Outpatient visit [] Follow-up visit [] Physician referral [] Code/Alert [x] Routine visit [] Staff referral [] Actively dying [] Patient sleeping [] Family support [] [] Out of room [] Palliative care [] [] Receiving care in room [] Pre-surgical visit [] Trauma [] Long length of stay [x] ICU visit [x] Other: patient resting setting up in bed Relational/Emotional Strength [] Patient feels connected with others/family/visitors/staff [] Distress [] Loneliness/isolation [] Abandonment Spirituality of Patient [] Person of Nilda [] Attends Islam of their Nilda [] Believes in Prayer [] Reads Bible or Rastafari materials [] There are Spiritual issues to be addressed Registered Pharmacy Technician Interventions [x] Prayer [] Active listening [] Non-anxious presence [] Spiritual/emotional support [] Crisis/trauma care [] Spiritual counseling [] Bereavement support [] Provided bereavement packet [] Provided Bible/devotional materials [] Provided toy/stuffed animal, coloring book to patient or family member [] Provided Communion [] Anointing/[place] [] Salvation [x] Completed spiritual assessment [] Other: Impact on Illness or Injury [] Angry [] Fearful [] Anxious [] Often cries [] Exhaustion [] Unable to work [] Unable to attend zoroastrianism [] Unable to walk/stand [] Unable to read [] Unable to drive [] Unable to eat/drink [] Unable to sleep [] Unable to be with family [] Patient intubated [] Other: Summary Time spent with patient
[2021-02-23] MEDS: budesonide 0.5 mg/2 mL Neb INHALATION ×2 (10:04→20:42)
[2021-02-23] MEDS: insulin lispro 100 unit/1 mL SUBCUT (12:45)
[2021-02-23 12:46] LABS: Glucose Point of Care 186 mg/dL (70-110)
--- NOTE | 2021-02-23 15:22 | PM.PN ---
Subjective Subjective: Interval history: Patient was seen and examined this morning. she is felling much better,still has significant b/l l/e swelling.And currently she is 6.5 Ls positive, will initiate lasix 40 mg po daily. SOB is at baseline. Participating with physical therapy. Continue to be in [facility]. Medications: Reviewed: Yes Vitals/I&O/Wt Last Vital Signs Temp 98 F 02/23/21 04:00 Pulse 81 02/23/21 10:11 Resp 16 02/23/21 10:04 BP 110/57 02/23/21 06:00 Pulse Ox 92 02/23/21 10:04 02/23/21 02/23/21 02/23/21 06:59 14:59 22:59 Intake Total 500 / 1075 240 / 240 Output Total 350 / 350 Balance 150 / 725 240 / 240 Weight last 48 hrs Weight 82.962 kg Weight 83.915 kg Physical Exam Const: COMMON NORMALS: patient oriented x3 HENMT: COMMON NORMALS: normocephalic and atraumatic HEAD & SCALP: normocephalic and atraumatic Resp: COMMON NORMALS: clear to auscultation bilaterally AUSCULTATION: clear to auscultation bilaterally Cardio: COMMON NORMALS: regular rate, regular rhythm, S1 normal heart sound present, S2 normal heart sound present, No gallops present (Cardio), No murmurs present (Cardio), No rub (Cardio) and Peripheral pulses 2+ throughout RATE: regular rate RHYTHM: regular rhythm HEART SOUNDS: S1 normal heart sound present and S2 normal heart sound present PERIPHERAL PULSES: Peripheral pulses 2+ throughout GI: COMMON NORMALS: Normal to inspection, nondistended, normoactive bowel sounds present, Soft to palpation, non-tender, No hepatosplenomegaly present and no masses AUSCULTATION: Yes normoactive bowel sounds PALPATION: Yes Soft to palpation and Yes No hepatosplenomegaly present RECTAL EXAM: deferred Extremity: NARRATIVE EXTREMITY EXAM: Bilateral lower extremity 3+ pitting edema Neuro: COMMON NORMALS: patient oriented x3 Urinary Catheter Management^: Martines: Cath Placed During This Visit: yes Reason for Continuing Indwelling Catheter: Accurate Measurement of Urinary Output in Critically Ill Patients Urinary Catheter Date of Insertion: 02/17/21 Urinary Catheter Time of Insertion: 15:25 Data : 02/23/21 04:40 02/23/21 04:40 Micro: Microbiology 02/17/21 21:32 Blood Culture - Final Blood NO GROWTH AFTER 5 DAYS 02/17/21 15:17 Blood Culture - Final Blood NO GROWTH AFTER 5 DAYS A&P Assessment and plan (1) Septic shock: Status: Acute (2) Afib: Status: Acute (3) Fecal impaction of colon: Status: Acute (4) Hyponatremia: Status: Acute (5) Hypokalemia: Status: Acute (6) HTN (hypertension): Status: Acute (7) Type 2 diabetes mellitus: Status: Acute (8) Primary osteoarthritis of left hip: Status: Acute Additional A&P Information Anemia: Rule out possible GI bleed: H&H has dropped to: 6.3/19.2 as compared to admission H&H of 10.3/32. Denies any chest pain, shortness of breath. Vitals are stable. FOBT Hold prophylactic heparin subcu. 2 unit PRBC Protonix 40 mg IV daily Monitor H&H Shock: Most likely hypovolemic but cannot rule out septic: Unknown source. CT chest, abdomen pelvis negative for any active signs of acute infection. CT abdomen pelvis consistent with diffuse lymphadenopathy and fecal impaction. CT chest with tree-in-bud. Pro-Geraldo negative, MRSA positive, UA negative for signs of infection, cortisol level, TSH within normal limits. COVID-19 PCR :Negative Urine Legionella bacterial antigen negative. IV fluid at 75 cc/h. And albumin every 8 hourly for 1 day. Has been discontinued. As the patient is hemodynamically stable Initially on vancomycin and Zosyn. Vancomycin has been discontinued.Zosyn was deescalated to ceftriaxone. All antibiotics have been discontinued. Of Levophed. Afib: Reverted to normal sinus rhythm. Paroxysmal A. fib. 2D echo: Limited echocardiogram obtained to assess LV systolic function. LV systolic function is normal with EF of 60 to 65%. No regional wall motion abnormalities are seen. Continue amiodarone 200 mg daily. Can not AC given history recurrent falls and possible Slow G/I Bleed Leukocytosis: Unlikely from sepsis. Culture results so far negative. CT imaging negative for signs of infection. Patient has remained afebrile. Cannot rule out lymphoma versus leukemia given diffuse lymphadenopathy. Peripheral smear, lymphoma panel sent out. Hyponatremia: Resolving. Serum osmolarity 284. Urine sodium less than 10. Most likely secondary to hypoproteinemia versus third spacing and severe constipation. Continue with IV fluids as above. Repeat CMP in evening. Significant bilateral lower extremity edema: Lasix 40 mg p.o. daily. Osteoarthritis of left hip: MRI and CT of the left hip.: Advanced primary osteoarthritis PT/OT eval. Morphine 1 mg IV Q6h PRN, [place] 5 Q6h PRN. Appreciate orthopedic : follow up as outpatient for further management. Constipation/fecal impaction: Aggressive bowel regimen. X-ray KUB, abdominal series. Code Status: DNR/DNI. States in case she is not able to make her medical decisions her son Mohan Ojeda will be making the decisions. Mr. Preston who lives in [place]. He states he talks to her mother once or twice a year. States there is no family closer to [place]. He is agreeable to make medical decisions. Protonix for PUD ppx Heparin for DVT PPX Mechanical soft carb consistent cardiac high-protein diet. Discharge planning: SNF once medically stable and cleared from orthopedics standpoint. Attestations Medical Necessity Statement*: Patient needs to be in hospital for shock.Anticipated discharge by tomorrow to SNF. Coding Level of Care Code Acute Freezing Machine Operator for Chg Fwd Exam Expanded Problem Focused Diagnoses Septic shock A41.9; R65.21 Afib I48.91 Fecal impaction of colon K56.41 Hyponatremia E87.1 Hypokalemia E87.6 HTN (hypertension) I10 Type 2 diabetes mellitus E11.9 Primary osteoarthritis of left hip M16.12
[2021-02-23 17:15] LABS: Glucose Point of Care 87 mg/dL (70-110)
--- NOTE | 2021-02-23 17:26 | PC.NURSE ---
Report called to Nurse on [facility] pt to be transferred by bed to room 256 bed 2.
--- NOTE | 2021-02-23 19:00 | PC.NURSE ---
Beginning of shift: Pt AAOx3 and able to verbalize needs. Assessment complete. Call light in reach. Positioned for comfort. Martines patent and draining. RIJ CVL clean, dry and intact. NO s/s of distress.
[2021-02-23 21:07] LABS: Glucose Point of Care 106 mg/dL (70-110)
[2021-02-23] MEDS: sennosides 8.6 mg Tablet 17.2 MG PO (22:10)
[2021-02-23] MEDS: magnesium hydroxide 30 mL UDC PO (22:10)
[2021-02-23] MEDS: pantoprazole 40 mg SDV IVP (22:11)
[2021-02-23] MEDS: atorvastatin 40 mg Tablet 20 MG PO (22:11)
[2021-02-24 00:26] VITALS: BP 105/60; PULSE 87; RESP 20; TEMP 37.2; O2SAT 93
[2021-02-24 03:26] VITALS: BP 119/74; PULSE 87; RESP 17; TEMP 36.6; O2SAT 95
[2021-02-24] MEDS: TRAMadol 50 mg Tablet PO (03:27)
[2021-02-24 06:41] LABS: Glucose Point of Care 110 mg/dL (70-110)
[2021-02-24 08:00] VITALS: BP 130/85; PULSE 92; RESP 18; TEMP 36.6; O2SAT 97
[2021-02-24 09:39] VITALS: PULSE 84; RESP 16; O2SAT 95
[2021-02-24] MEDS: ipratropium-albuterol 3 mL Neb INHALATION (09:39)
[2021-02-24] MEDS: budesonide 0.5 mg/2 mL Neb INHALATION (09:39)
[2021-02-24] MEDS: amiodarone 200 mg Tablet PO (09:45)
[2021-02-24] MEDS: FUROsemide 40 mg Tablet PO (09:45)
--- NOTE | 2021-02-24 11:16 | P.DS_ITS ---
Discharge Providers Date of Admission: 02/17/21 17:59 Date of Discharge: February 24, 2021 Attending Provider at Admission: Spike Jamison MD Attending Provider at Discharge: Hernandez Colon MD Primary Care Provider: Isaiah Camp DO Diagnoses at Discharge Discharge Diagnosis (1) Septic shock: Status: Resolved (2) Afib: Status: Acute (3) Fecal impaction of colon: Status: Acute (4) Hyponatremia: Status: Acute (5) Hypokalemia: Status: Acute (6) HTN (hypertension): Status: Acute (7) Type 2 diabetes mellitus: Status: Acute (8) Primary osteoarthritis of left hip: Status: Acute Reason for Visit Reason for Visit: LOW BP Hospital Course Hospital Course HPI : Dr. Vargas 70 year old female with past medical history of hypertension, type [address] [facility] for last 1 week was brought to the ER by EMS after she was found unresponsive at the intermediate. As per the history patient was admitted to the SNF around a week ago when she was transferred from [facility] where she had presented for fall and diarrhea. She was discharged on Cipro and Flagyl for gastroenteritis. Patient was under quarantine at the intermediate. Today morning she was found unresponsive with reported no pulse and palpable BP at the intermediate and received 150 cc of fluid after which her blood pressure apparently improved. In the ER patient was found to be in atrial fibrillation with hypotension she was started on Cardizem drip and Levophed and was given 500 cc of IV fluid bolus. On examination patient is lying comfortably in bed, awake, alert x3 though slightly sluggish in response, looking edematous with severely dehydrated oral cavity. Patient states she has hypertension diabetes mellitus and used to live in assisted living prior to being transferred to the intermediate a week ago. She is complaining of pain in her hip. She reports prior to going to the [facility] she has had up to 3 falls in last 1 week. States fall were mostly because she tripped over her own feet. Denies any dizziness or chest pain no seizure-like activity or palpitation prior to falls. Complaining of on and off occasional diarrhea which is watery in nature. Denies any nausea, vomiting, dysuria, palpitation, chest pain, difficulty in breathing. Blood work in the ER showed a white count 15,000, hemoglobin of 10.3 with left shift, sodium of 130, chloride of 95, BUN of 43, creatinine of 0.7, lactate of 6, AST/ALT of 37/25 with alkaline phosphatase of 397 with baseline troponin of 38, proBNP of 1447 with chest x-ray showing no acute abnormality while x-ray hip read by ER physician for possible impacted hip fracture. CT head showing no acute abnormality. Hospital course During the hospital stay : She was managed for shock most likely hypovolemic but cannot conclusively rule out septic shock of unclear etiology:CT chest, abdomen pelvis negative for any active signs of acute infection. CT abdomen pelvis consistent with diffuse lymphadenopathy and fecal impaction. CT chest with tree-in-bud. Pro-Geraldo negative, MRSA positive, UA negative for signs of infection, cortisol level, TSH within normal limits. COVID-19 PCR :Negative Urine Legionella bacterial antigen negative. She was empirically kept on broad- spectrum antibiotics which were later discontinued, she also required vasopressors during the hospital stay. Optimal IV fluid resuscitation was undertaken. Hospital course was complicated by development of A. fib with RVR for which she was started on amnio drip to which she responded well and converted to normal sinus rhythm, she has been continued on p.o. amiodarone 200 mg daily.2D echo: Limited echocardiogram obtained to assess LV systolic function. LV systolic function is normal with EF of 60 to 65%. No regional wall motion abnormalities are seen.Anticoagulation was not undertaken as she has a history of recurrent fall. She also developed acute anemia during the hospital stay H&H dropped to 6.3/19, for which she needed 2 units PRBC, post PRBC transfusion her H&H remained stable. She was kept on Protonix. No evident bleeding source were identified, cannot conclusively rule out slow GI bleed.FOBT was pending at the time of discharge.she has agreed to follow cardiology as an outpatient for new onset A. fib, given that the possibility of getting of amiodarone, on cardiology follow up, as the A. fib is in the setting of possible sepsis. Osteoarthritis of left hip: MRI and CT of the left hip.: Advanced primary osteoarthritis. Orthopedic was on board she will follow orthopedic service as an outpatient.Constipation/fecal impaction: Aggressive bowel regimen was undertaken. Patient also has significant bilateral lower extremity as well as upper extremity swelling. Lasix 40 mg p.o. daily has been continued. Patient has significant weakness and physical deconditioning, for which she will need extensive PT. overall she has responded well to the above medical management and is being discharged to the intermediate. Physical Exam Const: COMMON NORMALS: patient oriented x3 HENMT: COMMON NORMALS: normocephalic and atraumatic HEAD & SCALP: normocephalic and atraumatic Resp: COMMON NORMALS: clear to auscultation bilaterally AUSCULTATION: clear to auscultation bilaterally Cardio: COMMON NORMALS: regular rate, regular rhythm, S1 normal heart sound present, S2 normal heart sound present, No gallops present (Cardio), No murmurs present (Cardio), No rub (Cardio) and Peripheral pulses 2+ throughout RATE: regular rate RHYTHM: regular rhythm HEART SOUNDS: S1 normal heart sound p resent and S2 normal heart sound present PERIPHERAL PULSES: Peripheral pulses 2+ throughout GI: COMMON NORMALS: Normal to inspection, nondistended, normoactive bowel sounds present, Soft to palpation, non-tender, No hepatosplenomegaly present and no masses AUSCULTATION: Yes normoactive bowel sounds PALPATION: Yes Soft to palpation and Yes No hepatosplenomegaly present RECTAL EXAM: deferred Extremity: NARRATIVE EXTREMITY EXAM: Bilateral lower extremity 3+ pitting edema Neuro: COMMON NORMALS: patient oriented x3 Urinary Catheter Management^: Martines: Cath Placed During This Visit: yes Reason for Continuing Indwelling Catheter: Other Urinary Catheter Date of Insertion: 02/17/21 Urinary Catheter Time of Insertion: 15:25 Discharge Data Data Completed and Pending: Completed Studies During Hospitalization Category Date Time Status CT chest abd pel w con* Urgent Cat Scan 02/17/21 17:[address] head wo con* 7 0450 Stat Cat Scan 02/17/21 14:[address] hip LT wo con* [id number] Stat Cat Scan 02/17/21 18:36 Completed XR KUB [id number] Rout ine Exams 02/19/21 09:48 Completed XR chest 1V rudi ble [id number] Stat Exams 02/17/21 03:22 Completed XR chest 1V rudi ble [id number] Stat Exams 02/17/21 14:56 Completed XR hip LT 2-3V wo /w pel* [id number] Stat Exams 02/17/21 17:18 Completed MR hip LT wo con* [id number] Routine MRI 02/20/21 08:13 Completed CV. echo complete * [id number] Stat Ultrasound 02/17/21 17:51 Completed CV. echo limited [id number] Routine Ultrasound 02/18/21 15:14 Completed Pending at discharge Category Date Time Status Immunochemical Fe geraldo OCB Routine Lab 02/17/21 21:12 Ordered Immunochemical Fe geraldo OCB Routine Lab 02/20/21 19:27 Uncollected Labs from last 24 hours 02/24/21 02/23/21 02/23/21 06:28 20:54 17:13 POC Glucose 110 106 87 02/23/21 12:43 POC Glucose 186 H Vitals: Last Vital Signs Temp 97.9 F 02/24/21 08:00 Pulse 84 02/24/21 09:39 Resp 16 02/24/21 09:39 BP 130/85 02/24/21 08:00 Pulse Ox 95 02/24/21 09:39 Discharge Plan Discharge Patient Disposition: Home Condition: Stable Prescriptions: New Pacerone 200 mg Tablet 200 mg PO DAILY 30 Days Qty: 30 RF: 0 Klor-Con 20 mEq packet 20 meq PO DAILY Qty: 30 RF: 0 Continued Lasix 40 mg Tablet 40 mg PO DAILY@0700 RF: 0 acetaminophen 325 mg Tablet 650 mg PO Q8H PRN (Reason: Pain) RF: 0 atorvastatin 20 mg Tablet 20 mg PO BEDTIME@2000 RF: 0 Lomotil 2.5-0.025 mg Tablet 1 tab PO Q6H PRN (Reason: Diarrhea) RF: 0 lisinopril 10 mg Tablet 10 mg PO DAILY@0700 RF: 0 potassium chloride 20 mEq Tablet Extended Release 40 meq PO DAILY@0700 RF: 0 Jardiance 10 mg Tablet 10 mg PO DAILY@0700 RF: 0 Rybelsus 3 mg Tablet 3 mg PO DAILY@0530 RF: 0 Med Plus 1 can PO BID@,16 RF: 0 Discharge Orders: Discharge Order (Routine); Ordered 02/24/21 Ordered By: Hernandez Colon Referrals: [facility] [Outside] Kaya Pino MD [Physician] - 03/08/21 1:45 pm Melinda Diez MD [Physician] - 03/14/21 1:15 pm Isaiah Camp DO [Primary Care Provider] - 03/01/21 10:45 am Discharge Diet: Soft Mechanical Discharge Activity: Increase activity as tolerated and As per PT/OT instructions Patient Instructions: Opioid Safety Discharge Attestations Time Spent in Discharge Care*: less than 30 min Specific Discharge Activities: educating patient, educating and/or supporting family/caregiver, discussing with pcp/other providers, discussing with casework specialist/social workers/dc planners, documenting/other paperwork and evaluating patient/reviewing data Status at Discharge: Cognitive status at discharge: cognitively intact , Behavioral status at discharge: cooperative , Functional status at discharge: other assisted ambulation Overall status at discharge: patient is progressing back to baseline Quality Metrics Clinical Quality Measures During this hospital stay, did patient experience: None Coding Level of Care Code Acute Chg FW DC note Exam Detailed Diagnoses Septic shock A41.9; R65.21 Afib I48.91 Fecal impaction of colon K56.41 Hyponatremia E87.1 Hypokalemia E87.6 HTN (hypertension) I10 Type 2 diabetes mellitus E11.9 Primary osteoarthritis of left hip M16.12
[2021-02-24 12:00] VITALS: BP 93/56; PULSE 88; RESP 18; TEMP 36.4; O2SAT 95
[2021-02-24 12:09] LABS: Glucose Point of Care 157 mg/dL (70-110)
[2021-02-24] MEDS: insulin lispro 100 unit/1 mL SUBCUT (12:38)
--- NOTE | 2021-02-24 13:57 | PC.NURSE ---
[facility]
[2021-02-24 16:06] VITALS: BP 93/56; PULSE 88; RESP 18; TEMP 36.4; O2SAT 95
== END 2021-02-24 14:45 | disposition skilled nursing facility (03) | DRG 871 ==
LOC: ER 18:22 → ICU 18:50 → MEDSURG 02-23 17:33
PROVIDERS: Admitting Provider Student in an Organized Health Care Education/Training Program; Emergency Provider Family Medicine; PCP Internal Medicine; Visit Provider Internal Medicine
DX: A41.9 Sepsis, unspecified organism (principal); R65.21 Severe sepsis with septic shock; R57.1 Hypovolemic shock; E87.1 Hypo-osmolality and hyponatremia; I95.9 Hypotension, unspecified; I10 Essential (primary) hypertension; E78.5 Hyperlipidemia, unspecified; E11.9 Type 2 diabetes mellitus without complications; Z87.891 Personal history of nicotine dependence; I48.0 Paroxysmal atrial fibrillation; J45.909 Unspecified asthma, uncomplicated; K59.00 Constipation, unspecified; Z66 Do not resuscitate; M16.12 Unilateral primary osteoarthritis, left hip; G89.29 Other chronic pain; D64.9 Anemia, unspecified; B95.62 Methicillin resistant Staphylococcus aureus infection as the cause of diseases classified elsewhere; R59.0 Localized enlarged lymph nodes; R29.6 Repeated falls
CPT/HCPCS: 36416; 36430; 36556; 51702; 70450; 71045; 71260; 73502; 73700; 73721; 74018; 74177; 80048; 80053; 80061; 80202; 80500; 81001; 82436; 82533; 82550; 82962; 83036; 83540; 83550; 83605; 83690; 83735; 83880; 84100; 84133; 84145; 84300; 84439; 84443; 84481; 84484; 85025; 85378; 86403; 86850; 86900; 86920; 87040; 87449; 87635; 87641; 88184; 88185; 93005; 93306; 93308; 94640; 94664; 96372; 96374; 96375; 97110; 97161; 97530; 99285; C1751; C9113; J0282; J0456; J0696; J1644; J1815; J1940; J2270; J2405; J2543; J3010; J3370; J3480; J3490; J7030; J7040; J7050; J7060; J7626; P9016; P9047; Q9967